=== PATIENT | female | born 1965 | race Caucasian/White ===

== ENCOUNTER 2016-06-11 19:51 | Emergency (ER) | payer MEDICAID ==
[2016-06-11] MEDS ORDERED: NORCO 5/325MG TABLET (BULK) As Ordered ONE (21:19)
--- NOTE | 2016-06-11 21:29 | EDDOCDS ---
Physician Documentation [facility] Name: Shaina Manrique Age: 50 yrs Sex: Female : 1965 Arrival Date: 06/11/2016 Time: 19:51 Bed Triage 1 Private MD: Marty Knott Disposition: 06/11/16 21:20 Discharged to Home/Self Care. Impression: Fracture of coccyx, Contusion of lower back and pelvis. - Condition is Stable. - Discharge Instructions: Back Pain, Adult, Contusion, Tailbone Injury. - Prescriptions for [place] 5- 325 mg Oral Tablet - take 1 tablet by ORAL route every 6 hours As needed MDD: 4 tabs; 12 tablet. - Work Release Form - 2 day, Medication Reconciliation, Local Pharmacy Hours form. - Follow up: Marty Knott; When: Call to arrange an appointment; Reason: Recheck today's complaints, Continuance of care. - Problem is new. - Symptoms are unchanged. Historical: - Allergies: NSAIDS d/t ulcers; - Home Meds: 1. amlodipine 10 mg oral tab 1 tab once daily (Last dose: 06/11/2016 08:00) 2. Cymbalta 30 mg Oral cpDR once daily (Last dose: 06/11/2016 08:00) 3. Zoloft 50 mg Oral tab 1 tab once daily (Last dose: 06/11/2016 08:00) 4. tramadol 50 mg Oral tab 1 tab every 4-6 hours (Last dose: 06/11/2016 15:00) 5. Protonix 40 mg Oral TbEC 1 tab 2 times per day (Last dose: 06/11/2016 08:00) - PMHx: Chronic Back pain; Depression; Gastric Ulcers; Hypertension; - PSHx: Lumbar Laminectomy; Hip Arthroplasty, Left; - Social history: Smoking status: Patient uses tobacco products, current some day smoker. Patient/guardian denies using alcohol, street drugs, No barriers to communication noted, The patient speaks fluent Upper Sorbian, Speaks appropriately for age. - Family history: Not pertinent. - : The pt / caregiver states he / she is not on anticoagulants. Home medication list is obtained from the patient. - Exposure Risk Screening:: None identified. 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 4 in. (162.56 cm) (R); Pain 7/10; 21:20 BP 150 / 98 LA (man/); Resp 18; ms18 19:53 Body Mass Index 30.90 (81.65 kg, 162.56 cm) lr2 21:20 PT states that she forgot to take her BP meds today and states that she will take them ms18 as soon as she gets home MDM: 21:16 HYDROcodone-acetaminophen 4 pack- 5 mg-325 mg 1 packets PO Per package directions; mo1 Dispense with patient. 1 po q4h prn for pain ordered. 21:27 [facility] Payment Agreement was scanned into [employer] and attached to record. jp5 21:27 Financial registration complete. jp5 Administered Medications: 21:25 Drug: HYDROcodone-acetaminophen 4 pack- 1 packets [hydrocodone 5 mg-acetaminophen 325 lf1 mg tablet (1 tabs)] {Co-Signature: ms18 (Anastasia Arreola RN).} Route: PO; 21:26 Follow up: Response: Med's dispensed home lf1 Signatures: Astrid Segundo RN RN lf1 Milagros Birch RN RN darrellb Luis Enrique Magana PA PA mo1 Harriett Daniels jp5 Anastasia rAreola RN ms18 The chart was reviewed and I authenticate all verbal orders and agree with the evaluation and treatment provided.Attachments: 21:27 [facility] Payment Agreement jp5 MTDD
--- NOTE | 2016-06-11 21:29 | EDDOCDS ---
Nurse's Notes [facility] Name: Shaina Manrique Age: 50 yrs Sex: Female : 1965 Arrival Date: 06/11/2016 Time: 19:51 Bed Triage 1 Private MD: Marty Knott Diagnosis: Fracture of coccyx;Contusion of lower back and pelvis Presentation: 06/11 19:57 Presenting complaint: Patient states: fell onto "tail bone" last night. Seen at and ttb was instructed to come to ER for CT scan to rule out sacral fracture. Adult Sepsis Screening: The patient does not have new or worsening altered mentation. Patient's respiratory rate is less than 22. Systolic blood pressure is greater than 100. Patient has a qSOFA score of 0- Negative Sepsis Screen. Suicide/Homicide risk assessment- the patient denies having any suicidal and/or homicidal ideations and does not present with any other emotional, behavioral or mental health complaints. Status: Patient is not a community service coordinator or dependent. Transition of care: patient was not received from another setting of care. 19:57 Acuity: KARL Level 4 ttb 19:57 Method Of Arrival: Walkin/Carried/Asstd ttb Triage Assessment: 19:59 General: Appears in no apparent distress, uncomfortable, well nourished, well groomed, ttb Behavior is appropriate for age, cooperative, pleasant. Pain: Location: "tailbone" Pain currently is 7 out of 10 on a pain scale. HIV screening NA for this visit Offered previously. Neurological: Level of Consciousness is awake, alert. Cardiovascular: Chest pain is denied. Respiratory: No deficits noted. Airway is patent Denies cough, shortness of breath. Derm: Skin is normal. Musculoskeletal: pain to coccyx. Injury Description: pt fell from standing. 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 amlodipine 10 mg oral tab 1 tab once daily (Last dose: 06/11/2016 08:00) 2. Cymbalta 30 mg Oral cpDR once daily (Last dose: 06/11/2016 08:00) 3. Zoloft 50 mg Oral tab 1 tab once daily (Last dose: 06/11/2016 08:00) 4. tramadol 50 mg Oral tab 1 tab every 4-6 hours (Last dose: 06/11/2016 15:00) 5. Protonix 40 mg Oral TbEC 1 tab 2 times per day (Last dose: 06/11/2016 08:00) - PMHx: Chronic Back pain; Depression; Gastric Ulcers; Hypertension; - PSHx: Lumbar Laminectomy; Hip Arthroplasty, Left; - Social history: Smoking status: Patient uses tobacco products, current some day smoker. Patient/guardian denies using alcohol, street drugs, No barriers to communication noted, The patient speaks fluent Turkmen, Speaks appropriately for age. - Family history: Not pertinent. - : The pt / caregiver states he / she is not on anticoagulants. Home medication list is obtained from the patient. - Exposure Risk Screening:: None identified. Screenin:37 Screening information is obtained from the patient. Fall risk: No risks identified. lf1 Assistance ADL's: requires no assistance with activities of daily living. Abuse/DV Screen: The patient / caregiver reports he/she is: not in a situation that causes fear, pain or injury. Nutritional screening: No deficits noted. Advance Directives: Currently, there is no health care proxy. home support is adequate. Assessment: 20:36 Adult Sepsis Screening: The patient does not have new or worsening altered mentation. lf1 Patient's respiratory rate is less than 22. Systolic blood pressure is greater than 100. Patient has a qSOFA score of 0- Negative Sepsis Screen. General: Appears uncomfortable, Behavior is cooperative. Pain: Location: coccyx and gluteal cleft Pain currently is 8 out of 10 on a pain scale. Neurological: Level of Consciousness is awake, alert, Oriented to person, place, time. EENT: No deficits noted. Respiratory: Respiratory effort is even, unlabored. GI: Denies nausea, vomiting. : Denies incontinence. Injury Description: pt fell from standing. 20:37 General: Pt reports she was seen at [facility] and had xrays, was advised to [facility] report to ED for CT scan to rule out fracture. 21:26 General: Appears uncomfortable, Behavior is cooperative. Pain: Location: coccyx Pain lf1 currently is 8 out of 10 on a pain scale. Neurological: Level of Consciousness is awake, alert. Respiratory: Respiratory effort is even, unlabored. GI: Denies nausea, vomiting. Derm: Skin is intact. Vital Signs: 19:53 BP 185 / 105; Pulse 89; Resp 16; Temp 99.0; Pulse Ox 98% ; Weight 81.65 kg (R); Height lr2 5 ft. 4 in. (162.56 cm) (R); Pain 7/10; 21:20 BP 150 / 98 LA (man/); Resp 18; ms18 19:53 Body Mass Index 30.90 (81.65 kg, 162.56 cm) lr2 21:20 PT states that she forgot to take her BP meds today and states that she will take them ms18 as soon as she gets home Vitals: 19:53 Log In Time: June 11, 2016 at 19:51. lr2 ED Course: 19:53 Patient visited by Blanquita Fernandez. lr2 19:53 Patient moved to Waiting lr2 19:55 Marty Knott is Private Physician. lr2 19:55 Patient moved to Pre RCE lr2 19:57 Triage Initiated ttb 20:35 Patient moved to Triage 1 lf1 20:38 Patient visited by Astrid Segundo RN. lf1 20:54 Luis Enrique Magana PA is PHCP. mo1 20:54 Chad Olea DO is Attending Physician. mo1 21:07 Patient visited by Luis Enrique Magana PA. mo1 21:20 Patient visited by Anastasia Arreola RN. ms18 21:20 Marty Knott is Referral Physician. mo1 21:26 The patient / caregiver is instructed regarding the plan of care and ED course. lf1 21:26 No IV's were initiated during this patient's visit. No procedures done that require lf1 assistance. 21:27 [facility] Payment Agreement was scanned into [employer] and attached to record. jp5 Administered Medications: 21:25 Drug: HYDROcodone-acetaminophen 4 pack- 1 packets [hydrocodone 5 mg-acetaminophen 325 lf1 mg tablet (1 tabs)] {Co-Signature: ms18 (Anastasia Arreola RN).} Route: PO; 21:26 Follow up: Response: Med's dispensed home lf1 Order Results: There are currently no results for this order. Outcome: 21:20 Discharge ordered by Provider. mo1 21:26 Discharge Assessment: Patient awake, alert and oriented x 3. No cognitive and/or lf1 functional deficits noted. Patient verbalized understanding of disposition instructions. Patient awake and alert. Oriented to person, place and time. Patient verbalized understanding of disposition instructions. patient administered narcotics - yes. Pt provided with safe discharge. The following High Risk Discharge criteria are identified: None. Discharged to home ambulatory. Condition: improved. Discharge instructions given to patient, Instructed on discharge instructions, follow up and referral plans. medication usage, no driving heavy equipment, Demonstrated understanding of instructions, medications, Pt was receptive of discharge instructions/ teaching. Prescriptions given X 1, Work note provided to patient. No special radiology studies were completed. Property :Personal belongings accompany Pt. 21:28 Patient left the ED. lf1 Signatures: Astrid SegundoRN RN lf1 Milagros Birch RN RN ttb Luis Enrique Magana PA PA mo1 Anastasia ArreolaRN RN ms18 Harriett Daniels jp5 Blanquita Fernandez lr2 Anastasia Arreola RN ms18 Corrections: (The following items were deleted from the chart) 19:56 19:53 Pulse 89bpm; Resp 16bpm; Pulse Ox 98%; Temp 99.0F; 81.65 kg Reported; Height 5 lr2 ft. 4 in. Reported; BMI: 30.9; Pain 7/10; lr2 MTDD
--- NOTE | 2016-06-13 22:30 | EDDOCDS ---
Nurse's Notes [facility] Name: Shaina Manrique Age: 50 yrs Sex: Female : 1965 Arrival Date: 06/11/2016 Time: 19:51 Bed Triage 1 Private MD: Marty Knott Diagnosis: Fracture of coccyx;Contusion of lower back and pelvis Presentation: 06/11 19:57 Presenting complaint: Patient states: fell onto "tail bone" last night. Seen at and ttb was instructed to come to ER for CT scan to rule out sacral fracture. Adult Sepsis Screening: The patient does not have new or worsening altered mentation. Patient's respiratory rate is less than 22. Systolic blood pressure is greater than 100. Patient has a qSOFA score of 0- Negative Sepsis Screen. Suicide/Homicide risk assessment- the patient denies having any suicidal and/or homicidal ideations and does not present with any other emotional, behavioral or mental health complaints. Status: Patient is not a information services vice president or dependent. Transition of care: patient was not received from another setting of care. 19:57 Acuity: KARL Level 4 ttb 19:57 Method Of Arrival: Walkin/Carried/Asstd ttb Triage Assessment: 19:59 General: Appears in no apparent distress, uncomfortable, well nourished, well groomed, ttb Behavior is appropriate for age, cooperative, pleasant. Pain: Location: "tailbone" Pain currently is 7 out of 10 on a pain scale. HIV screening NA for this visit Offered previously. Neurological: Level of Consciousness is awake, alert. Cardiovascular: Chest pain is denied. Respiratory: No deficits noted. Airway is patent Denies cough, shortness of breath. Derm: Skin is normal. Musculoskeletal: pain to coccyx. Injury Description: pt fell from standing. 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 amlodipine 10 mg oral tab 1 tab once daily (Last dose: 06/11/2016 08:00) 2. Cymbalta 30 mg Oral cpDR once daily (Last dose: 06/11/2016 08:00) 3. Zoloft 50 mg Oral tab 1 tab once daily (Last dose: 06/11/2016 08:00) 4. tramadol 50 mg Oral tab 1 tab every 4-6 hours (Last dose: 06/11/2016 15:00) 5. Protonix 40 mg Oral TbEC 1 tab 2 times per day (Last dose: 06/11/2016 08:00) - PMHx: Chronic Back pain; Depression; Gastric Ulcers; Hypertension; - PSHx: Lumbar Laminectomy; Hip Arthroplasty, Left; - Social history: Smoking status: Patient uses tobacco products, current some day smoker. Patient/guardian denies using alcohol, street drugs, No barriers to communication noted, The patient speaks fluent Luxembourgish, Speaks appropriately for age. - Family history: Not pertinent. - : The pt / caregiver states he / she is not on anticoagulants. Home medication list is obtained from the patient. - Exposure Risk Screening:: None identified. Screenin:37 Screening information is obtained from the patient. Fall risk: No risks identified. lf1 Assistance ADL's: requires no assistance with activities of daily living. Abuse/DV Screen: The patient / caregiver reports he/she is: not in a situation that causes fear, pain or injury. Nutritional screening: No deficits noted. Advance Directives: Currently, there is no health care proxy. home support is adequate. Assessment: 20:36 Adult Sepsis Screening: The patient does not have new or worsening altered mentation. lf1 Patient's respiratory rate is less than 22. Systolic blood pressure is greater than 100. Patient has a qSOFA score of 0- Negative Sepsis Screen. General: Appears uncomfortable, Behavior is cooperative. Pain: Location: coccyx and gluteal cleft Pain currently is 8 out of 10 on a pain scale. Neurological: Level of Consciousness is awake, alert, Oriented to person, place, time. EENT: No deficits noted. Respiratory: Respiratory effort is even, unlabored. GI: Denies nausea, vomiting. : Denies incontinence. Injury Description: pt fell from standing. 20:37 General: Pt reports she was seen at [facility] and had xrays, was advised to [facility] report to ED for CT scan to rule out fracture. 21:26 General: Appears uncomfortable, Behavior is cooperative. Pain: Location: coccyx Pain lf1 currently is 8 out of 10 on a pain scale. Neurological: Level of Consciousness is awake, alert. Respiratory: Respiratory effort is even, unlabored. GI: Denies nausea, vomiting. Derm: Skin is intact. Vital Signs: 19:53 BP 185 / 105; Pulse 89; Resp 16; Temp 99.0; Pulse Ox 98% ; Weight 81.65 kg (R); Height lr2 5 ft. 4 in. (162.56 cm) (R); Pain 7/10; 21:20 BP 150 / 98 LA (man/); Resp 18; ms18 19:53 Body Mass Index 30.90 (81.65 kg, 162.56 cm) lr2 21:20 PT states that she forgot to take her BP meds today and states that she will take them ms18 as soon as she gets home Vitals: 19:53 Log In Time: June 11, 2016 at 19:51. lr2 ED Course: 19:53 Patient visited by Blanquita Fernandez. lr2 19:53 Patient moved to Waiting lr2 19:55 Marty Knott is Private Physician. lr2 19:55 Patient moved to Pre RCE lr2 19:57 Triage Initiated ttb 20:35 Patient moved to Triage 1 lf1 20:38 Patient visited by Astrid Segundo RN. lf1 20:54 Luis Enrique Magana PA is PHCP. mo1 20:54 Chad Olea DO is Attending Physician. mo1 21:07 Patient visited by Luis Enrique Magana PA. mo1 21:20 Patient visited by Anastasia Arreola,WING. ms18 21:20 Marty Knott is Referral Physician. mo1 21:26 The patient / caregiver is instructed regarding the plan of care and ED course. lf1 21:26 No IV's were initiated during this patient's visit. No procedures done that require lf1 assistance. 21:27 [facility] Payment Agreement was scanned into [employer] and attached to record. jp5 06/12 09:35 T-Sheet-- Draft Copy was scanned into [employer] and attached to record. gb Administered Medications: 06/11 21:25 Drug: HYDROcodone-acetaminophen 4 pack- 1 packets [hydrocodone 5 mg-acetaminophen 325 lf1 mg tablet (1 tabs)] {Co-Signature: ms18 (Anastasia Arreola RN).} Route: PO; 21:26 Follow up: Response: Med's dispensed home lf1 Order Results: There are currently no results for this order. Outcome: 21:20 Discharge ordered by Provider. mo1 21:26 Discharge Assessment: Patient awake, alert and oriented x 3. No cognitive and/or lf1 functional deficits noted. Patient verbalized understanding of disposition instructions. Patient awake and alert. Oriented to person, place and time. Patient verbalized understanding of disposition instructions. patient administered narcotics - yes. Pt provided with safe discharge. The following High Risk Discharge criteria are identified: None. Discharged to home ambulatory. Condition: improved. Discharge instructions given to patient, Instructed on discharge instructions, follow up and referral plans. medication usage, no driving heavy equipment, Demonstrated understanding of instructions, medications, Pt was receptive of discharge instructions/ teaching. Prescriptions given X 1, Work note provided to patient. No special radiology studies were completed. Property :Personal belongings accompany Pt. 21:28 Patient left the ED. lf1 Signatures: Mendy Contreras, Reg Reg gb Astrid SegundoRN RN lf1 Milagros Birch RN RN ttb Luis Enrique Magana PA PA mo1 Anastasia Arreola RN RN ms18 Harriett Daniels Laura lr2 Anastasia Arreola RN ms18 Corrections: (The following items were deleted from the chart) 19:56 19:53 Pulse 89bpm; Resp 16bpm; Pulse Ox 98%; Temp 99.0F; 81.65 kg Reported; Height 5 lr2 ft. 4 in. Reported; BMI: 30.9; Pain 7/10; lr2 Chart Complete MTDD
--- NOTE | 2016-06-13 22:30 | EDDOCDS ---
Physician Documentation [facility] Name: Shaina Manrique Age: 50 yrs Sex: Female : 1965 Arrival Date: 06/11/2016 Time: 19:51 Bed Triage 1 Private MD: Marty Knott Disposition: 06/11/16 21:20 Discharged to Home/Self Care. Impression: Fracture of coccyx, Contusion of lower back and pelvis. - Condition is Stable. - Discharge Instructions: Back Pain, Adult, Contusion, Tailbone Injury. - Prescriptions for [place] 5- 325 mg Oral Tablet - take 1 tablet by ORAL route every 6 hours As needed MDD: 4 tabs; 12 tablet. - Work Release Form - 2 day, Medication Reconciliation, Local Pharmacy Hours form. - Follow up: Marty Knott; When: Call to arrange an appointment; Reason: Recheck today's complaints, Continuance of care. - Problem is new. - Symptoms are unchanged. Historical: - Allergies: NSAIDS d/t ulcers; - Home Meds: 1. amlodipine 10 mg oral tab 1 tab once daily (Last dose: 06/11/2016 08:00) 2. Cymbalta 30 mg Oral cpDR once daily (Last dose: 06/11/2016 08:00) 3. Zoloft 50 mg Oral tab 1 tab once daily (Last dose: 06/11/2016 08:00) 4. tramadol 50 mg Oral tab 1 tab every 4-6 hours (Last dose: 06/11/2016 15:00) 5. Protonix 40 mg Oral TbEC 1 tab 2 times per day (Last dose: 06/11/2016 08:00) - PMHx: Chronic Back pain; Depression; Gastric Ulcers; Hypertension; - PSHx: Lumbar Laminectomy; Hip Arthroplasty, Left; - Social history: Smoking status: Patient uses tobacco products, current some day smoker. Patient/guardian denies using alcohol, street drugs, No barriers to communication noted, The patient speaks fluent Sami, Speaks appropriately for age. - Family history: Not pertinent. - : The pt / caregiver states he / she is not on anticoagulants. Home medication list is obtained from the patient. - Exposure Risk Screening:: None identified. 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 4 in. (162.56 cm) (R); Pain 7/10; 21:20 BP 150 / 98 LA (man/); Resp 18; ms18 19:53 Body Mass Index 30.90 (81.65 kg, 162.56 cm) lr2 21:20 PT states that she forgot to take her BP meds today and states that she will take them ms18 as soon as she gets home MDM: 21:16 HYDROcodone-acetaminophen 4 pack- 5 mg-325 mg 1 packets PO Per package directions; mo1 Dispense with patient. 1 po q4h prn for pain ordered. [facility] Payment Agreement was scanned into [employer] and attached to record. jp5 : Financial registration complete. jp5 06/12 09:35 T-Sheet-- Draft Copy was scanned into [employer] and attached to record. gb Administered Medications: 06/11 21:25 Drug: HYDROcodone-acetaminophen 4 pack- 1 packets [hydrocodone 5 mg-acetaminophen 325 lf1 mg tablet (1 tabs)] {Co-Signature: [email or web address] (Anastasia Arreola RN).} Route: PO; 21:26 Follow up: Response: Med's dispensed home lf1 Signatures: Mendy Contreras, Reg Reg gb Astrid Segundo RN RN lf1 Milagros Birch RN RN ttb Luis Enrique Magana PA PA mo1 Harriett Daniels jp5 Anastasia Arreola RN ms18 The chart was reviewed and I authenticate all verbal orders and agree with the evaluation and treatment provided.Attachments: [facility] Payment Agreement jp5 06/12 09:35 T-Sheet-- Draft Copy gb Chart Complete MTDD
--- NOTE | 2016-06-13 22:30 | EDDOCDS ---
Physician Documentation [facility] Name: Shaina Manrique Age: 50 yrs Sex: Female : 1965 Arrival Date: 06/11/2016 Time: 19:51 Bed Triage 1 Private MD: Marty Knott Disposition: 06/11/16 21:20 Discharged to Home/Self Care. Impression: Fracture of coccyx, Contusion of lower back and pelvis. - Condition is Stable. - Discharge Instructions: Back Pain, Adult, Contusion, Tailbone Injury. - Prescriptions for Emmet 5- 325 mg Oral Tablet - take 1 tablet by ORAL route every 6 hours As needed MDD: 4 tabs; 12 tablet. - Work Release Form - 2 day, Medication Reconciliation, Local Pharmacy Hours form. - Follow up: Marty Knott; When: Call to arrange an appointment; Reason: Recheck today's complaints, Continuance of care. - Problem is new. - Symptoms are unchanged. Historical: - Allergies: NSAIDS d/t ulcers; - Home Meds: 1. amlodipine 10 mg oral tab 1 tab once daily (Last dose: 06/11/2016 08:00) 2. Cymbalta 30 mg Oral cpDR once daily (Last dose: 06/11/2016 08:00) 3. Zoloft 50 mg Oral tab 1 tab once daily (Last dose: 06/11/2016 08:00) 4. tramadol 50 mg Oral tab 1 tab every 4-6 hours (Last dose: 06/11/2016 15:00) 5. Protonix 40 mg Oral TbEC 1 tab 2 times per day (Last dose: 06/11/2016 08:00) - PMHx: Chronic Back pain; Depression; Gastric Ulcers; Hypertension; - PSHx: Lumbar Laminectomy; Hip Arthroplasty, Left; - Social history: Smoking status: Patient uses tobacco products, current some day smoker. Patient/guardian denies using alcohol, street drugs, No barriers to communication noted, The patient speaks fluent Uzbek, Speaks appropriately for age. - Family history: Not pertinent. - : The pt / caregiver states he / she is not on anticoagulants. Home medication list is obtained from the patient. - Exposure Risk Screening:: None identified. 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 4 in. (162.56 cm) (R); Pain 7/10; 21:20 BP 150 / 98 LA (man/); Resp 18; ms18 19:53 Body Mass Index 30.90 (81.65 kg, 162.56 cm) lr2 21:20 PT states that she forgot to take her BP meds today and states that she will take them ms18 as soon as she gets home MDM: 21:16 HYDROcodone-acetaminophen 4 pack- 5 mg-325 mg 1 packets PO Per package directions; mo1 Dispense with patient. 1 po q4h prn for pain ordered. [facility] Payment Agreement was scanned into [employer] and attached to record. jp5 : Financial registration complete. jp5 06/12 09:35 T-Sheet-- Draft Copy was scanned into [employer] and attached to record. gb Administered Medications: 06/11 21:25 Drug: HYDROcodone-acetaminophen 4 pack- 1 packets [hydrocodone 5 mg-acetaminophen 325 lf1 mg tablet (1 tabs)] {Co-Signature: [id number] (Anastasia Arreola RN).} Route: PO; 21:26 Follow up: Response: Med's dispensed home lf1 Signatures: Mendy Contreras, Reg Reg gb Astrid Segundo RN RN lf1 Milagros Birch RN RN ttb Luis Enrique Magana PA PA mo1 Harriett Daniels jp5 Anastasia Arreola RN ms18 The chart was reviewed and I authenticate all verbal orders and agree with the evaluation and treatment provided.Attachments: [facility] Payment Agreement jp5 06/12 09:35 T-Sheet-- Draft Copy gb Chart Complete MTDD
== END 2016-06-11 21:28 | disposition home or self-care (01) ==
LOC: M ED 19:51
DX: S32.2XXA Fracture of coccyx, initial encounter for closed fracture (principal); W18.2XXA Fall in (into) shower or empty bathtub, initial encounter; Y92.012 Bathroom of single-family (private) house as the place of occurrence of the external cause; Y93.89 Activity, other specified; Y99.8 Other external cause status; I10 Essential (primary) hypertension; G89.29 Other chronic pain; I73.9 Peripheral vascular disease, unspecified; F32.9 Major depressive disorder, single episode, unspecified; K25.9 Gastric ulcer, unspecified as acute or chronic, without hemorrhage or perforation; Z79.899 Other long term (current) drug therapy; Z88.6 Allergy status to analgesic agent; F17.210 Nicotine dependence, cigarettes, uncomplicated

== ENCOUNTER → 2016-06-11 | Outpatient (CLI) | payer MEDICAID ==
--- NOTE | 2016-06-11 17:43 | REP ---
Clinical: Coccyx pain. AP and lateral views of the sacrum and coccyx. Comparison: 05/01/2015. Findings: Possible fracture and subluxation at the level of the distal sacrum is identified with what appears to be a "step off "along the contour of the distal sacrum/coccyx on lateral radiograph. Findings suggest a change from prior examination and fracture of relative indeterminate age. Impression: Cannot exclude fracture and subluxation of the distal sacrum/coccyx. Signed by Lb Ackerman MD 06/11/2016 05:34 P
== END ==
LOC: M LRY 16:57
PROVIDERS: ATTEND Nurse Practitioner Family
DX: M53.3 Sacrococcygeal disorders, not elsewhere classified (principal); R93.7 Abnormal findings on diagnostic imaging of other parts of musculoskeletal system

== ENCOUNTER → 2017-06-07 | Outpatient (CLI) | payer OTHER, MEDICAID | LOC: M LRY 10:33 | DX: S39.92XA Unspecified injury of lower back, initial encounter (principal); Z98.1 Arthrodesis status; M51.36 Other intervertebral disc degeneration, lumbar region | CPT/HCPCS: 72110 ==

== ENCOUNTER 2017-07-07 11:53 | Emergency (ER) | payer OTHER, MEDICAID ==
[2017-07-07] MEDS: NORCO, ANEXSIA 5/325MG TABLET (HYDROcodone/ACETAMINOPHEN) PO (12:10)
== END 2017-07-07 13:12 | disposition home or self-care (01) ==
LOC: M ED 11:53
DX: S32.2XXA Fracture of coccyx, initial encounter for closed fracture (principal); W01.0XXA Fall on same level from slipping, tripping and stumbling without subsequent striking against object, initial encounter; Y92.89 Other specified places as the place of occurrence of the external cause; M54.9 Dorsalgia, unspecified; G89.29 Other chronic pain; F17.200 Nicotine dependence, unspecified, uncomplicated; Z79.899 Other long term (current) drug therapy
CPT/HCPCS: 72220

== ENCOUNTER → 2017-09-11 | Outpatient (REF) | payer OTHER ==
[2017-09-11 19:20] LABS: RHEUMATOID FACTOR QUANT < 10.0 IU/ML (<15.0)
[2017-09-13 14:16] LABS: ANTI DOUBLE STRAND-DNA AB 3 IU/mL (0-9); ANTINUCLEAR ANTIBODIES DIRECT Negative (Negative)
[2017-09-14 03:02] LABS: CYCLIC CITRULLINATED PEPTIDE 5 units (0-19)
== END ==
LOC: M LAB REF 16:44
DX: Z13.9 Encounter for screening, unspecified (principal)
CPT/HCPCS: 86038

== ENCOUNTER → 2018-07-17 | Outpatient (REF) | payer OTHER, MEDICAID ==
[~2018-07-17] MED LIST: AMLO10TA5; DULO1CAP3; GABA800T4; HYDR-3713 PO; METO1TAB7; PANT40TA3; SERT-138; TRAM50TA2
[2018-07-17 13:36] LABS: ALBUMIN 3.9 GM/DL (3.2-5.2); ALT/SGPT 22 U/L (12-78); BILIRUBIN,TOTAL 0.3 MG/DL (0.2-1.0); BLOOD UREA NITROGEN 15 MG/DL (7-18); CALCIUM LEVEL 8.7 MG/DL (8.5-10.1); CARBON DIOXIDE LEVEL 28 MEQ/L (21-32); CHLORIDE LEVEL 111 MEQ/L (98-107); CHOLESTEROL LEVEL 217 MG/DL (<200); CHOLESTEROL RISK RATIO 4.018 (<5); CREATININE FOR GFR 0.88 MG/DL (0.55-1.30); GLOMERULAR FILTRATION RATE > 60.0 (>51); GLUCOSE, FASTING 111 MG/DL (70-100); HDL CHOLESTEROL 54 MG/DL (>40); LDL CHOLESTEROL 147 MG/DL (<100); NON-HDL-C 163 MG/DL; POTASSIUM SERUM 3.4 MEQ/L (3.5-5.1); SODIUM LEVEL 144 MEQ/L (136-145); TOTAL PROTEIN 7.3 GM/DL (6.4-8.2); TRIGLYCERIDES LEVEL 79 MG/DL (<150)
[2018-07-17 13:37] LABS: TOTAL 25(OH) VITAMIN D 17.9 NG/ML (30.0-100.0); VITAMIN B12 LEVEL 356 PG/ML (247-911)
[2018-07-17 14:22] LABS: HEMOGLOBIN A1c 5.7 %
[2018-07-17 15:53] LABS: BASO % 0.4 % (0.0-1.0); EOS # 0.1 10^3/uL (0.0-0.50); EOS % 1.7 % (0.0-3.0); HEMATOCRIT 37.5 % (36.0-47.0); HEMOGLOBIN 11.5 g/dl (12.0-15.5); LYMPH # 1.6 10^3/uL (1.5-4.5); LYMPH % 30.4 % (24.0-44.0); MEAN CORPUSCULAR HEMOGLOBIN 23.7 pg (27.0-33.0); MEAN CORPUSCULAR HGB CONC 30.7 g/dl (32.0-36.5); MEAN CORPUSCULAR VOLUME 77.2 fl (80.0-96.0); MONO # 0.4 10^3/uL (0.0-0.8); MONO % 6.5 % (0.0-5.0); NEUTROPHILS # 3.3 10^3/uL (1.8-7.7); NEUTROPHILS % 60.6 % (36.0-66.0); PLATELET COUNT, AUTOMATED 325 10^3/uL (150-450); RED BLOOD COUNT 4.86 10^6/uL (4.00-5.40); WHITE BLOOD COUNT 5.4 10^3/uL (4.0-10.0)
== END ==
LOC: M LAB REF 12:41
PROVIDERS: ATTEND Nurse Practitioner Family
DX: Z13.9 Encounter for screening, unspecified (principal); I10 Essential (primary) hypertension

== ENCOUNTER 2019-12-31 14:09 | Emergency (ER) | payer MEDICAID, OTHER ==
[~2019-12-31] VITALS: Ht 162.6 cm; Wt 88.6 kg
[~2019-12-31 14:09] MED LIST changes: -AMLO10TA5; +AMLO1TAB25; -DULO1CAP3; +DULO1CAP6; +PANT40TA29; -PANT40TA3
[2019-12-31] MEDS ORDERED: ACET-683 PO (14:21)
--- NOTE | 2019-12-31 15:29 | REPVR ---
PROCEDURE INFORMATION: Exam: XR Right Shoulder Exam date and time: 12/31/2019 3:13 PM Age: 54 years old Clinical indication: Injury or trauma; Fall; Initial encounter; Blunt trauma (contusions or hematomas); Shoulder; Right; Additional info: Fall, poor rom TECHNIQUE: Imaging protocol: XR Right shoulder. Views: 2 or more views. COMPARISON: No relevant prior studies available. FINDINGS: Bones/joints: Normal. Soft tissues: Normal. IMPRESSION: No acute findings. Electronically signed by: Jeffrey Real On 12/31/2019 15:29:21 PM
--- NOTE | 2019-12-31 15:30 | REPVR ---
PROCEDURE INFORMATION: Exam: XR Right Humerus Exam date and time: 12/31/2019 3:13 PM Age: 54 years old Clinical indication: Injury or trauma; Fall; Initial encounter; Blunt trauma (contusions or hematomas); Arm, upper; Right; Additional info: Fall, poor rom TECHNIQUE: Imaging protocol: XR Right humerus Views: 2 or more views. COMPARISON: CR Elbow, complete 11/16/2013 11:53 AM FINDINGS: Bones/joints: A 5 mm bone island is seen in the capitellum. There is no evidence of fracture. Soft tissues: Normal. IMPRESSION: There is no evidence of fracture. Electronically signed by: Jeffrey Real On 12/31/2019 15:30:02 PM
[2019-12-31 16:13] VITALS: BP 170/94
== END 2019-12-31 16:19 | disposition home or self-care (01) ==
LOC: M ED 14:09
DX: M25.511 Pain in right shoulder (principal); W01.0XXA Fall on same level from slipping, tripping and stumbling without subsequent striking against object, initial encounter; Y92.019 Unspecified place in single-family (private) house as the place of occurrence of the external cause; I10 Essential (primary) hypertension; K25.9 Gastric ulcer, unspecified as acute or chronic, without hemorrhage or perforation; F17.200 Nicotine dependence, unspecified, uncomplicated; Z79.899 Other long term (current) drug therapy

== ENCOUNTER → 2020-01-23 | Outpatient (CLI) | payer OTHER ==
[~2020-01-23] MED LIST changes: +ACET-683 PO
--- NOTE | 2020-01-28 08:42 | REP ---
MRI RIGHT SHOULDER HISTORY: Fall one month ago with pain. TECHNIQUE: MRI right shoulder performed with multiple sequences obtained. The study is extremely limited due to excessive patient motion on all sequences. The study is limited despite repeating virtually every sequence. FINDINGS: There is a complete full-thickness tear of the supraspinatus tendon with retraction of the musculotendinous junction, approximately 4 cm. I suspect at least a partial tear of the infraspinatus tendon as well. There is a partial tear of the subscapularis. There are mild hypertrophic degenerative changes of the acromioclavicular joint. There is a type 2 acromion. The biceps tendon appears somewhat thickened and there is mild surrounding fluid, suggesting tendinitis or strain. There is no Hill-Sachs deformity. No abnormal signal is seen in the deltoid muscle. No gross labral tear is seen, but evaluation of the labrum is extremely limited due to the excessive patient motion. There is no definite abnormal bone marrow signal with no occult fracture. There is a moderate joint effusion with fluid extending throughout the subacromial subdeltoid bursa. IMPRESSION: Extremely limited exam due to excessive patient motion. There is a full- thickness complete tear of the supraspinatus tendon with retraction of the musculotendinous junction approximately 4 cm. There is at least a partial tear of the infraspinatus tendon and subscapularis tendon. Mild hypertrophic degenerative changes of the acromioclavicular joint with a type 2 acromion. Thickening and increased signal of the biceps tendon in the bicipital groove with mild surrounding fluid, suggesting tendinitis or strain. Labrum is not well evaluated, but there is no gross labral tear seen. Moderate joint effusion, with fluid throughout the subacromial subdeltoid bursae. MTDD
== END ==
LOC: M RAD 06:54
PROVIDERS: ATTEND Orthopaedic Surgery Sports Medicine
DX: M75.101 Unspecified rotator cuff tear or rupture of right shoulder, not specified as traumatic (principal)

== ENCOUNTER → 2020-02-16 | Outpatient (CLI) | payer OTHER | LOC: M LABSMTC 12:50 | PROVIDERS: ATTEND Anesthesiology | DX: Z01.812 Encounter for preprocedural laboratory examination (principal); Z20.828 Contact with and (suspected) exposure to other viral communicable diseases | CPT/HCPCS: C9803; U0003 ==

== ENCOUNTER 2020-02-20 07:25 | Day surgery (SDC) | payer OTHER ==
[~2020-02-20] VITALS: Ht 162.6 cm; Wt 98.8 kg
[~2020-02-20 07:25] MED LIST changes: +LR 1,000 ML IV ONE; +MIDAZOLAM INJ 2MG/2ML VIAL (J2250 PER 1MG) As Ordered ONE; +ceFAZolin SOD 2 GM in IV 1 EA IV ONE; +fentaNYL 100 MCG/2 ML INJECTION (J3010) As Ordered ONE
[2020-02-20] MEDS ORDERED: dexameTHASONE 10MG/1ML VIAL PRES.FREE (J1100 PER 1MG) ONE (07:26)
[2020-02-20] MEDS ORDERED: LIDOCAINE 1% MDV 20ML VIAL ONE (07:26)
[2020-02-20] MEDS ORDERED: ROPIvacaine 0.5% 30ML INJECTION (J2795 PER 1MG) ONE (07:26)
[2020-02-20] MEDS ORDERED: propofoL 200 MG/20 ML VIAL As Ordered ONE (08:34)
[2020-02-20] MEDS ORDERED: ROCURONIUM BROMIDE 50 MG/5 ML VIAL As Ordered ONE (08:34)
[2020-02-20] MEDS ORDERED: LIDOCAINE 2% 100MG/5ML SDV (FOR ANES.) As Ordered ONE (08:34)
[2020-02-20] MEDS ORDERED: fentaNYL 250 MCG/5 ML INJECTION (J3010) As Ordered ONE (08:35)
[2020-02-20] MEDS ORDERED: MIDAZOLAM INJ 2MG/2ML VIAL (J2250 PER 1MG) As Ordered ONE ×2 (08:35→09:44)
[2020-02-20] MEDS: fentaNYL 100 MCG/2 ML INJECTION (J3010) IV PRN ×6 (09:31→13:55)
[2020-02-20] MEDS: MIDAZOLAM INJ 2MG/2ML VIAL (J2250 PER 1MG) IV PRN ×4 (09:31→09:50)
[2020-02-20] MEDS ORDERED: EPINEPHrine 1MG/ML INJ 30ML MD-VIAL As Ordered ONE (09:48)
[2020-02-20] MEDS ORDERED: LABETALOL 100MG/20ML VIAL As Ordered ONE (10:42)
[2020-02-20] MEDS ORDERED: SUGAMMADEX SODIUM 500 MG/5 ML VIAL (BRIDION) As Ordered ONE (11:58)
[2020-02-20] MEDS ORDERED: dexameTHASONE 4 MG/ML 1ML VIAL (J1100 PER 1MG) As Ordered ONE (11:58)
[2020-02-20] MEDS ORDERED: ONDANSETRON 4MG/2ML VIAL As Ordered ONE (11:58)
[2020-02-20] MEDS ORDERED: KETOROLAC 60MG 2ML VIAL As Ordered ONE (11:58)
[2020-02-20] MEDS ORDERED: fentaNYL 100 MCG/2 ML INJECTION (J3010) As Ordered ONE ×3 (12:03→13:33)
[2020-02-20] MEDS ORDERED: ACETAMINOPHEN TAB 650MG DOSE (2X325MG) PO PRN (13:15)
[2020-02-20] MEDS ORDERED: PERCOCET 5MG/325MG TAB PO PRN (13:15)
[2020-02-20] MEDS ORDERED: LR 1,000 ML IV SCH ×2 (13:15)
[2020-02-20] MEDS ORDERED: oxyCODONE 5MG TAB PO PRN (13:15)
[2020-02-20] MEDS ORDERED: MORPHINE 2 MG/ML 1ML VIAL (J2270) IV PRN (13:15)
[2020-02-20] MEDS ORDERED: ONDANSETRON 4MG/2ML VIAL IV PRN ×2 (13:15)
[2020-02-20 15:30] VITALS: BP 144/88
--- NOTE | 2020-02-23 07:11 | RO ---
DATE OF OPERATION: 02/20/2020 PREOPERATIVE DIAGNOSIS: Right shoulder rotator cuff tear. POSTOPERATIVE DIAGNOSIS: Right shoulder rotator cuff tear. PROPOSED PROCEDURE: Right shoulder arthroscopic rotator cuff repair. PROCEDURE PERFORMED: Right shoulder arthroscopic rotator cuff repair, subscapularis repair, supraspinatus repair, subacromial decompression, biceps tenotomy. SURGEON: Dr. David Starkey RECORDS MANAGER: TYPE OF ANESTHETIC: General anesthetic plus block. OPERATIVE PREAMBLE: This 54-year-old female had a fall and sustained an acute large full-thickness rotator cuff tear. We talked about the pros, cons, risks, benefits of going ahead with surgery and marked the right upper extremity. She had no further questions and proceeded to surgery. OPERATIVE REPORT: Patient was brought to the operating theater, where they administered general anesthetic. They administered preoperative block. They administered 600 mg of intravenous (IV) clindamycin prior to the start of the case due to penicillin allergy. The limb was prepped and draped in the usual sterile fashion, allowing over 3 minutes for prep solution drying time prior to draping. Patient was placed in the right lateral decubitus position with the use of a longitudinal traction set up at 50 pounds of traction. Preoperative time- out was performed, confirming the site, the patient, and surgery. All bony prominences were padded, including axillary roll was used, sequential compression device on the down leg. We began by inserting the arthroscope into the shoulder first in posterior approach. I made an anterior portal through the rotator interval. I used standard two lateral portals. Cannulas were used anteriorly as well as two 8.25 mm cannulas laterally. The rotator interval was debrided. The cartilage on the glenoid and humeral side are normal. There was an obvious full-thickness supraspinatus tendon tear, including the subscapularis with an obvious comma sign. Biceps appeared unstable medially as well as having extreme flaying and longitudinal tearing, so I performed a tenotomy with the ablator. There was anterior to posterior tearing of the supraspinatus tendon as well. This was gently debrided to fresh margins. Subacromial decompression was performed as well as using the bur to create a bleeding bed of healing at the greater tuberosity. I performed mobilization of the tendon both superiorly as well as inferiorly at the tendon, avoiding going more medially than about 1 cm at the glenoid. I placed one stay stitch in the superolateral aspect of the anterior region into the supraspinatus as well as one locking loop stitch at the upper border of the subscapularis. I then placed these into an anterior leading edge 4.25 mm Arthrex SwiveLock biocomposite suture anchor to re-create the normal tension on the subscapularis. I took arthroscopic pictures throughout the case and saved these on the system. Next, we turned our attention to performing a standard Arthrex SpeedBridge technique. I placed my two medial anchors at the articular cartilage margin. I achieved large inferior to superior bites of the supraspinatus tendon. I then cut the splice and the suture and then demetris- crossed the sutures. I achieved good tension on the sutures and good footprint compression; however, the sutures did mildly cut through the superior aspect of the greater tuberosity; however, the construct achieved near perfect compression and nearly fully lateralized on the footprint. Arthroscopic pictures were taken and saved in the system. Infraspinatus appeared normally attached. Arthroscope was withdrawn. Wound was thoroughly irrigated. Portal sites were closed with interrupted 2-0 Vicryl sutures. We did use 8.25 mm cannulas. The skin was cleansed with wet to dry dressing followed by Steri-Strips, Adaptic 4 x54 gauze, ABD dressing, cloth tape. Patient was woken up from general anesthetic, transferred off the operating table, and taken to the postanesthesia care unit in stable condition. The patient's upper extremity was placed in a sling. There was some strike-through on the dressing afterwards. We changed the sling as well as reinforced the dressing. PLAN: Patient is to only do pendulum exercises in the sling for 6 weeks given the large size of the tear. I would like to see her in the office in two weeks' time. He may be discharged home according to day surgery criteria. Prescription will be called to pharmacy choice electronically. All sponge count, needle counts, and instruments counts were correct. No complications. Estimated blood loss 100 mL. MTDD
== END 2020-02-20 15:35 | disposition home or self-care (01) ==
LOC: M SDC 07:25
PROVIDERS: ATTEND Orthopaedic Surgery Sports Medicine
DX: S46.011A Strain of muscle(s) and tendon(s) of the rotator cuff of right shoulder, initial encounter (principal); S46.111A Strain of muscle, fascia and tendon of long head of biceps, right arm, initial encounter; I10 Essential (primary) hypertension; F17.210 Nicotine dependence, cigarettes, uncomplicated; F32.9 Major depressive disorder, single episode, unspecified; F41.9 Anxiety disorder, unspecified; W19.XXXA Unspecified fall, initial encounter; Y92.9 Unspecified place or not applicable; Y93.9 Activity, unspecified; Y99.9 Unspecified external cause status; Z79.899 Other long term (current) drug therapy; Z86.2 Personal history of diseases of the blood and blood-forming organs and certain disorders involving the immune mechanism; Z96.642 Presence of left artificial hip joint
CPT/HCPCS: 29826; 29827; 29828; 64415; C1713; J0690; J1100; J1885; J2250; J2405; J2795; J3010

== ENCOUNTER → 2020-03-19 | Outpatient (REF) | payer OTHER ==
[~2020-03-19] MED LIST changes: -LR 1,000 ML IV ONE; -MIDAZOLAM INJ 2MG/2ML VIAL (J2250 PER 1MG) As Ordered ONE; -ceFAZolin SOD 2 GM in IV 1 EA IV ONE; -fentaNYL 100 MCG/2 ML INJECTION (J3010) As Ordered ONE
[2020-03-19 12:58] LABS: BASO % 0.5 % (0.0-1.0); EOS # 0.2 10^3/uL (0.0-0.5); EOS % 2.7 % (0.0-3.0); HEMATOCRIT 36.2 % (36.0-47.0); LYMPH # 2.3 10^3/uL (1.5-5.0); LYMPH % 34.9 % (24.0-44.0); MEAN CORPUSCULAR HEMOGLOBIN 24.6 pg (27.0-33.0); MEAN CORPUSCULAR HGB CONC 30.4 g/dl (32.0-36.5); MONO # 0.5 10^3/uL (0.0-0.8); MONO % 8.1 % (0.0-5.0); NEUTROPHILS # 3.5 10^3/uL (1.5-8.5); NEUTROPHILS % 53.5 % (36.0-66.0); PLATELET COUNT, AUTOMATED 325 10^3/uL (150-450); RED BLOOD COUNT 4.47 10^6/uL (4.00-5.40); WHITE BLOOD COUNT 6.6 10^3/uL (4.0-10.0)
[2020-03-19 13:34] LABS: ALBUMIN 3.3 GM/DL (3.2-5.2); ALT/SGPT 23 U/L (12-78); BILIRUBIN,TOTAL 0.1 MG/DL (0.2-1.0); BLOOD UREA NITROGEN 25 MG/DL (7-18); CALCIUM LEVEL 8.4 MG/DL (8.5-10.1); CARBON DIOXIDE LEVEL 27 MEQ/L (21-32); CHLORIDE LEVEL 109 MEQ/L (98-107); CHOLESTEROL LEVEL 201 MG/DL (<200); CHOLESTEROL RISK RATIO 4.568 (<5); CREATININE FOR GFR 0.78 MG/DL (0.55-1.30); FREE T4 0.97 NG/DL (0.76-1.46); GLOMERULAR FILTRATION RATE > 60.0 (>51); GLUCOSE, FASTING 129 MG/DL (70-100); HDL CHOLESTEROL 44 MG/DL (>40); LDL CHOLESTEROL 112 MG/DL (<100); NON-HDL-C 157 MG/DL; POTASSIUM SERUM 4.1 MEQ/L (3.5-5.1); SODIUM LEVEL 139 MEQ/L (136-145); TOTAL 25(OH) VITAMIN D 18.8 NG/ML (30.0-100.0); TOTAL PROTEIN 6.6 GM/DL (6.4-8.2); TRIGLYCERIDES LEVEL 225 MG/DL (<150)
== END ==
LOC: M LAB REF 12:09
PROVIDERS: ATTEND Nurse Practitioner Family
DX: E66.9 Obesity, unspecified (principal); K21.9 Gastro-esophageal reflux disease without esophagitis; I10 Essential (primary) hypertension; M54.5 Low back pain; F41.9 Anxiety disorder, unspecified

== ENCOUNTER 2021-01-21 00:18 | Observation (INO) | payer OTHER ==
[~2021-01-21] VITALS: Ht 162.6 cm; Wt 107.2 kg
[2021-01-21] MEDS ORDERED: CLON0.5T2 PO ×2 (00:41→07:41)
[2021-01-21] MEDS ORDERED: METO1TAB33 (00:41)
[2021-01-21] MEDS ORDERED: NS 1,000 ML IV ONE (00:50)
[2021-01-21 01:43] LABS: BASO % 0.4 % (0.0-1.0); EOS # 0.3 10^3/uL (0.0-0.5); EOS % 2.8 % (0.0-3.0); HEMATOCRIT 38.6 % (36.0-47.0); HEMOGLOBIN 11.8 g/dl (12.0-15.5); LYMPH # 1.4 10^3/uL (1.5-5.0); LYMPH % 12.5 % (24.0-44.0); MEAN CORPUSCULAR HEMOGLOBIN 24.4 pg (27.0-33.0); MEAN CORPUSCULAR HGB CONC 30.6 g/dl (32.0-36.5); MEAN CORPUSCULAR VOLUME 79.8 fl (80.0-96.0); MONO # 0.9 10^3/uL (0.0-0.8); MONO % 7.5 % (2.0-8.0); NEUTROPHILS # 8.7 10^3/uL (1.5-8.5); NEUTROPHILS % 76.2 % (36.0-66.0); PLATELET COUNT, AUTOMATED 368 10^3/uL (150-450); RED BLOOD COUNT 4.84 10^6/uL (4.00-5.40); WHITE BLOOD COUNT 11.4 10^3/uL (4.0-10.0)
[2021-01-21 02:16] LABS: ACETAMINOPHEN LEVEL < 2.0 UG/ML (10.0-30.0); ALBUMIN 3.5 GM/DL (3.2-5.2); ALT/SGPT 28 U/L (12-78); BILIRUBIN,DIRECT < 0.1 MG/DL (0.0-0.2); BILIRUBIN,TOTAL 0.2 MG/DL (0.2-1.0); BLOOD UREA NITROGEN 17 MG/DL (7-18); CALCIUM LEVEL 8.6 MG/DL (8.5-10.1); CARBON DIOXIDE LEVEL 23 MEQ/L (21-32); CHLORIDE LEVEL 112 MEQ/L (98-107); CPK CREATINE PHOSPHOKINASE 135 U/L (26-192); CREATININE FOR GFR 0.61 MG/DL (0.55-1.30); ETHYL ALCOHOL (ETHANOL) < 0.003 % (0.000-0.010); GLOMERULAR FILTRATION RATE > 60.0 (>51); GLUCOSE, FASTING 108 MG/DL (70-100); POTASSIUM SERUM 4.1 MEQ/L (3.5-5.1); SALICYLATE LEVEL 2.8 MG/DL (5.0-30.0); SODIUM LEVEL 141 MEQ/L (136-145); TOTAL PROTEIN 7.2 GM/DL (6.4-8.2)
--- NOTE | 2021-01-21 05:48 | ECGEPIP ---
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
[2021-01-21 06:12] LABS: AMPHETAMINES LEVEL URINE NEGATIVE (NEGATIVE); BARBITURATES URINE NEGATIVE (NEGATIVE); BENZODIAZEPINES URINE NEGATIVE (NEGATIVE); CANNABINOIDS URINE POSITIVE (NEGATIVE); COCAINE METABOLITE URINE NEGATIVE (NEGATIVE); METHADONE URINE NEGATIVE (NEGATIVE); OPIATES URINE NEGATIVE (NEGATIVE); PHENCYCLIDINE URINE NEGATIVE (NEGATIVE)
[2021-01-21] MEDS ORDERED: TRAZ-257 PO (07:41)
[2021-01-21] MEDS ORDERED: DULO1CAP6 PO (07:41)
[2021-01-21] MEDS ORDERED: ZOLO100T PO (07:41)
[2021-01-21] MEDS ORDERED: TRAM50TA2 PO (07:41)
[2021-01-21] MEDS ORDERED: PANT40TA29 PO (07:41)
[2021-01-21] MEDS ORDERED: METO1TAB33 PO (07:41)
[2021-01-21] MEDS ORDERED: LOSA25TA14 PO (07:41)
[2021-01-21] MEDS ORDERED: GABA800T4 PO (07:41)
[2021-01-21] MEDS ORDERED: AMLO1TAB25 PO (07:41)
[2021-01-21] MEDS ORDERED: PROAAER10 INH (07:41)
[2021-01-21] MEDS ORDERED: MED REC COMMENT (07:42)
[2021-01-21] MEDS ORDERED: HOME MED LIST COMPLETE! XX SCH (07:45)
--- NOTE | 2021-01-21 08:03 | REP ---
INDICATION: AMS COMPARISON: 09/23/2014 TECHNIQUE: Portable AP view of the chest FINDINGS: The mediastinum and cardiac silhouette are stable and within normal limits for portable technique. The lung juárez are clear without acute consolidation, effusion, or pneumothorax. Skeletal structures are intact. IMPRESSION: No acute cardiopulmonary process appreciated. <Electronically signed by Lb Ackerman > 01/21/21 075
[2021-01-21 08:19] LABS: RSV AMPLIFICATION NEGATIVE (NEGATIVE)
--- NOTE | 2021-01-21 08:47 | REPVR ---
PROCEDURE INFORMATION: Exam: CT Head Without Contrast Exam date and time: 01/21/2021 7:11 AM Age: 55 years old Clinical indication: Altered mental status/memory loss; Additional info: AMS TECHNIQUE: Imaging protocol: Computed tomography of the head without contrast. Radiation optimization: All CT scans at this facility use at least one of these dose optimization techniques: automated exposure control; mA and/or kV adjustment per patient size (includes targeted exams where dose is matched to clinical indication); or iterative reconstruction. COMPARISON: MRI-Spine,Cervical without con 09/08/2015 9:39 AM FINDINGS: Brain: No acute hemorrhage or acute territorial infarct. Mild diffuse involutional changes. Cerebral ventricles: No ventriculomegaly. Paranasal sinuses: Visualized sinuses are unremarkable. No fluid levels. Mastoid air cells: Visualized mastoid air cells are well aerated. Bones/joints: Unremarkable. No acute fracture. Soft tissues: Unremarkable. IMPRESSION: No acute intracranial abnormality. Electronically signed by: Rory Tinoco On 01/21/2021 08:47:19 AM
[2021-01-21] MEDS ORDERED: traMADol 50 MG TAB PO PRN (09:35)
[2021-01-21] MEDS ORDERED: ALBUTEROL 90 MCG/ACT 8GM HFA INHALER INH PRN (09:35)
--- NOTE | 2021-01-21 09:57 | HPEPDOC ---
General Date of Admission 01/21/21 Date of Service: Jan 21, 2021 Chief Complaint The patient is a 55-year-old female admitted with a reason for visit of Substance Abuse. Source: Patient History of Present Illness Patient is 55 years old female with past medical history of depression, chronic back pain, hypertension, stomach ulcer, history of iron deficiency anemia presenting to the hospital with altered mental status. According to her son on January 18 patient was prescribed clonazepam for anxiety, patient had 15 pills left in her bottle. Today in the morning he was found found only 1 pill in the bottle. Presumably patient took 14 pills of clonazepam. On arrival to ED patient was not oriented in time and place. When I saw patient she was awake, alert and oriented in time and place. She adamantly reported that she did not want to kill herself and she never had any suicidal ideations. She does not remember what happened and why she had only 1 clonazepam pill left in the bottle. In ER patient was found to have white blood count of 11.4, EKG negative for acute ischemic changes. Home Medications Scheduled Amlodipine Besylate (Amlodipine Besylate) 10 Mg Tablet, 10 MG PO DAILY, (Reported) Duloxetine Hcl (Duloxetine HCl) 60 Mg Capsule.dr, 60 MG PO DAILY, (Reported) Gabapentin (Gabapentin) 800 Mg Tablet, 800 MG PO TID, (Reported) Losartan Potassium (Losartan Potassium) 25 Mg Tablet, 25 MG PO DAILY, (Reported) Metoprolol Succinate (Metoprolol Succinate) 100 Mg Tab.er.24h, 100 MG PO DAILY, (Reported) Pantoprazole Sodium (Pantoprazole Sodium) 40 Mg Tablet.dr, 40 MG PO BID, (Reported) Sertraline Hcl (Zoloft) 100 Mg Tablet, 100 MG PO DAILY, (Reported) Trazodone HCl (Trazodone HCl) 100 Mg Tablet, 100 MG PO QHS, (Reported) Scheduled PRN Albuterol Sulfate (Proair Hfa) 8.5 Gm Hfa.aer.ad, 2 PUFF INH Q6H PRN for SHORTNESS OF BREATH, (Reported) Clonazepam (Clonazepam) 0.5 Mg Tablet, 0.5 MG PO DAILY PRN for ANXIETY, (Reported) Tramadol HCl (Tramadol HCl) 50 Mg Tablet, 50 MG PO BID PRN for PAIN LEVEL 1-5, (Reported) Miscellaneous Medications [Med Rec Comment] , (Reported) MED LIST OBTAINED FROM EXTERNAL MED HISTORY, UNABLE TO VERIFY WITH PATIENT Allergies Coded Allergies: No Known Allergies (Unverified , 02/20/05) Past Medical History Medical History DEPRESSION8 YRS-ABILIFY 5 MTHS LAST YR- GAIN WT, STOPPED COUPLE DAYS AGO,ZOLOFT HERNIATED DISC AT [facility]- MRI 01/24 CHRONIC BACK PAIN-LUMBOSACRAL SPONDYLITIS- S/P SURGERY HX OF BILATERAL CARPAL TUNNEL WITH RT SIDED S/P RELEASE HTN FOR 10 YRS ON ATENOLOL STOMACH ULCER- EGD -PROTONIX HX OF IRON DEF ANEMIA Surgical History CARPAL TUNNEL 3-CSECTION LOWER BACK SURGERY AT [facility] Family History FATHER: ALIVE, DM MOTHER: ALIVE, NO KNOWN MEDICAL PROBLEMS Social History * Smoker: Denies Alcohol: Denies Drugs: denies A-FIB/CHADSVASC A-FIB History Current/History of A-Fib/PAF?: No Current PO Anticoag Therapy: No Review of Systems Constitutional: Denies: Chills, Fever Eyes: Denies: Pain ENT: Denies: Head Aches Skin: Denies: Rash Pulmonary: Denies: Dyspnea Cardiovascular: Denies: Chest Pain Gastrointestinal: Denies: Nausea, Vomiting Genitourinary: Denies: Dysuria Hematologic: Denies: Bruising Endocrine: Denies: Polydipsia Neurological: Denies: Weakness Psych: Reports: Mood Normal Physical Examination General Exam: Positive: Alert, Cooperative Eye Exam: Positive: PERRLA ENT Exam: Positive: Atraumatic Neck Exam: Positive: Supple; Negative: JVD Chest Exam: Positive: Clear to auscultation Heart Exam: Positive: Rate Normal Abdomen Exam: Positive: Normal bowel sounds Extremity Exam: Negative: Clubbing Neuro Exam: Positive: Normal Gait Psych Exam: Positive: Oriented x 3 Vital Signs Vital Signs Date Time Temp Pulse Resp B/P (MAP) Pulse Ox O2 Delivery O2 Flow Rate FiO2 01/21/21 09:00 68 96 Room Air 01/21/21 08:55 98.8 148/67 (94) 01/21/21 06:15 18 Laboratory Data Labs 24H Laboratory Tests 2 01/21/21 01:14: Immature Granulocyte % (Auto) 0.6, Neutrophils (%) (Auto) 76.2H, Lymphocytes (%) (Auto) 12.5L, Monocytes (%) (Auto) 7.5, Eosinophils (%) (Auto) 2.8, Basophils (%) (Auto) 0.4, Neutrophils # (Auto) 8.7H, Lymphocytes # (Auto) 1.4L, Monocytes # (Auto) 0.9H, Eosinophils # (Auto) 0.3, Basophils # (Auto) 0.0, Nucleated Red Blood Cells % (auto) 0.0, Anion Gap 6L, Glomerular Filtration Rate > 60.0, Calcium Level 8.6, Total Bilirubin 0.2, Direct Bilirubin < 0.1, Aspartate Amino Transf (AST/SGOT) 16, Alanine Aminotransferase (ALT/SGPT) 28, Alkaline Phosphatase 97, Total Creatine Kinase 135, Total Protein 7.2, Albumin 3.5, Albumin/Globulin Ratio 0.9L, Thyroid Stimulating Hormone (TSH) 1.310, Salicylates Level 2.8L, Acetaminophen Level < 2.0L, Ethyl Alcohol Level < 0.003 01/21/21 01:35: Bedside Glucose (Misc Panel) 113H 01/21/21 05:37: Urine Opiates Screen NEGATIVE, Urine Methadone Screen NEGATIVE, Urine Barbiturates Screen NEGATIVE, Urine Phencyclidine Screen NEGATIVE, Urine Amphetamines Screen NEGATIVE, Urine Benzodiazepines Screen NEGATIVE, Urine Cocaine Metabolite Screen NEGATIVE, Urine Cannabinoids Screen POSITIVEH 01/21/21 07:25: Coronavirus (COVID-19)(PCR) NEGATIVE, Influenza Type A (RT-PCR) NEGATIVE, Influenza Type B (RT-PCR) NEGATIVE, Respiratory Syncytial Virus (PCR) NEGATIVE CBC/BMP Laboratory Tests 01/21/21 01:14 Assessment/Plan Patient is 55 years old female with past medical history of depression, chronic back pain, hypertension, stomach ulcer, history of iron deficiency anemia presenting to the hospital with altered mental status. According to her son on January 18 patient was prescribed clonazepam for anxiety, patient had 15 pills left in her bottle. Today in the morning he was found found only 1 pill in the bottle. Presumably patient took 14 pills of clonazepam. On arrival to ED patient was not oriented in time and place. When I saw patient she was awake, alert and oriented in time and place. She adamantly reported that she did not want to kill herself and she never had any suicidal ideations. She does not remember what happened and why she had only 1 clonazepam pill left in the bottle. In ER patient was found to have white blood count of 11.4, EKG negative for acute ischemic changes. Problems (1) Metabolic encephalopathy Status: Acute Problem Text: 2/2 meds side effect resolved (2) Benzodiazepine overdose of undetermined intent Status: Acute Problem Text: appreciate/ agree with psych consult Gabapentin, sertraline, trazodone on hold (3) HTN (hypertension) Status: Chronic Problem Text: continue home meds Plan / VTE VTE Prophylaxis Ordered?: Yes CHRISTIANE MARINO DO Jan 21, 2021 09:57
[2021-01-21] MEDS: METOPROLOL SUCC (TopROL XL) 100MG *XL* TAB PO SCH (10:44)
[2021-01-21] MEDS: LOSARTAN 25 MG TAB PO SCH (10:45)
[2021-01-21] MEDS: PANTOPRAZOLE 40MG TAB (PROTONIX) PO SCH ×2 (10:45→21:45)
[2021-01-21] MEDS: DULoxetine 30MG CAPSULE (CYMBALTA) PO SCH (10:45)
[2021-01-21 14:19] VITALS: BP 138/70
[2021-01-21] MEDS: ACETAMINOPHEN TAB 650MG DOSE (2X325MG) PO PRN (19:07)
[2021-01-21] MEDS: HEPARIN SOD (PORCINE) 5000UNITS/ML 1ML VIAL/SYRINGE SC SCH (21:45)
[2021-01-21 22:00] VITALS: BP 137/86
[2021-01-22 06:00] VITALS: BP 138/85
[2021-01-22] MEDS: ACETAMINOPHEN TAB 650MG DOSE (2X325MG) PO PRN (06:13)
[2021-01-22 07:07] LABS: HEMATOCRIT 35.5 % (36.0-47.0); HEMOGLOBIN 11.2 g/dl (12.0-15.5); MEAN CORPUSCULAR HEMOGLOBIN 24.6 pg (27.0-33.0); MEAN CORPUSCULAR HGB CONC 31.5 g/dl (32.0-36.5); MEAN CORPUSCULAR VOLUME 77.9 fl (80.0-96.0); PLATELET COUNT, AUTOMATED 321 10^3/uL (150-450); RED BLOOD COUNT 4.56 10^6/uL (4.00-5.40); WHITE BLOOD COUNT 6.6 10^3/uL (4.0-10.0)
[2021-01-22] MEDS ORDERED: FLUBLOK(EGG FREE)(QUAD)INFLUENZA VACC 0.5ML SYRINGE 18YRS & OLDER IM ONE (09:00)
[2021-01-22] MEDS: PANTOPRAZOLE 40MG TAB (PROTONIX) PO SCH (09:11)
[2021-01-22] MEDS: DULoxetine 30MG CAPSULE (CYMBALTA) PO SCH (09:11)
[2021-01-22] MEDS: LOSARTAN 25 MG TAB PO SCH (09:13)
[2021-01-22 09:14] VITALS: BP 157/89
[2021-01-22] MEDS: METOPROLOL SUCC (TopROL XL) 100MG *XL* TAB PO SCH (09:14)
[2021-01-22] MEDS: HEPARIN SOD (PORCINE) 5000UNITS/ML 1ML VIAL/SYRINGE SC SCH (09:15)
[2021-01-22 10:10] LABS: ALBUMIN 3.2 GM/DL (3.2-5.2); ALT/SGPT 33 U/L (12-78); BILIRUBIN,TOTAL 0.4 MG/DL (0.2-1.0); BLOOD UREA NITROGEN 11 MG/DL (7-18); CALCIUM LEVEL 8.7 MG/DL (8.5-10.1); CARBON DIOXIDE LEVEL 27 MEQ/L (21-32); CHLORIDE LEVEL 112 MEQ/L (98-107); CREATININE FOR GFR 0.57 MG/DL (0.55-1.30); GLOMERULAR FILTRATION RATE > 60.0 (>51); GLUCOSE, FASTING 107 MG/DL (70-100); MAGNESIUM LEVEL 2.1 MG/DL (1.8-2.4); POTASSIUM SERUM 3.6 MEQ/L (3.5-5.1); SODIUM LEVEL 144 MEQ/L (136-145); TOTAL PROTEIN 6.6 GM/DL (6.4-8.2)
--- NOTE | 2021-01-22 12:48 | MHCRPDOC ---
[facility] Consultation Consultation DATE OF CONSULTATION: 01/22/21 CONSULTATION REQUESTED BY: DR Luigi Barragan REASON FOR CONSULTATION: Overdose of Klonopin RELEVANT HISTORY: Patient was brought to the hospital with overdose of Klonopin treated on the medical unit, consult was called for evaluation of possibility of intentional overdose. As per her son, patient recently got filled her Klonopin 15 of them, he is only one left. He was thinking possibility of intentional overdose. Patient was evaluated today, she is calm cooperative made good eye contact reported to me that she never attempted suicide in her life and this could be accidental. She even does not know what happened prior to the overdose. She never been hospitalized in psychiatric unit, no history of suicide attempts however she was treated for depression and anxiety, currently she is on Cymbalta , Zoloft and Klonopin. She reports the medications are helping her. She has an upcoming appointment with the psychiatrist. She does not express any symptoms of depression nor suicidal thoughts PAST PSYCHIATRIC HISTORY: History of depression and anxiety SUBSTANCE ABUSE HISTORY: Denies MENTAL STATUS EXAMINATION: She is awake alert oriented to time place and person, speech coherent and goal- directed thought process is linear, mood is euthymic affect is appropriate for the mood, thought content denied any suicidal thoughts, no history of delusions, denies any auditory visual hallucinations, memory immediate remote recent are good, attention and concentration are good. DIAGNOSIS: 1. History of depression and anxiety Accidental overdose of Klonopin PLAN: Since patient has a outpatient appointment with a psychiatrist, she is currently taking antidepressants, she could be discharged to her son who is very supportive of her. Vital Signs Vital Signs Date Time Temp Pulse Resp B/P (MAP) Pulse Ox O2 Delivery O2 Flow Rate FiO2 01/22/21 10:36 17 01/22/21 09:14 79 187/89 01/22/21 06:00 98.5 92 Room Air Laboratory Data 24H Labs Laboratory Tests 2 01/21/21 21:38: Bedside Glucose (Misc Panel) 126H 01/22/21 06:23: Nucleated Red Blood Cells % (auto) 0.0, Anion Gap 5L, Glomerular Filtration Rate > 60.0, Calcium Level 8.7, Magnesium Level 2.1, Total Bilirubin 0.4#, Aspartate Amino Transf (AST/SGOT) 23, Alanine Aminotransferase (ALT/SGPT) 33, Alkaline Phosphatase 84, Total Protein 6.6, Albumin 3.2, Albumin/Globulin Ratio 0.9L Home Medications Current Medications Current Medications Medications (Trade) Dose Ordered Sig/Rd Route PRN Reason Start Time Stop Time Status Last Admin Dose Admin Acetaminophen (Tylenol Tab) 650 mg Q4H PRN PO MILD PAIN or TEMP > 101 01/21/21 09:35 01/22/21 06:13 Albuterol Sulfate (Proventil, Ventolin Hfa) 2 puff Q6H PRN INH SHORTNESS OF BREATH 01/21/21 09:35 Amlodipine Besylate (Norvasc) 10 mg DAILY PO 01/21/21 09:00 01/22/21 09:14 Duloxetine HCl (Cymbalta) 60 mg DAILY PO 01/21/21 09:00 01/22/21 09:11 Heparin Sodium (Porcine) (Heparin) 5,000 units Q12H SC 01/21/21 21:00 01/22/21 09:15 Home Med (Home Med List Complete!) ASDIRECTED XX 01/21/21 07:45 01/21/21 07:45 DC Losartan Potassium (Cozaar) 25 mg DAILY PO 01/21/21 09:00 01/22/21 09:13 Metoprolol Succinate (TopROL XL) 100 mg DAILY PO 01/21/21 09:00 01/22/21 09:14 Pantoprazole Sodium (Protonix) 40 mg BID PO 01/21/21 09:00 01/22/21 09:11 Tramadol HCl (Ultram) 50 mg BID PRN PO MODERATE PAIN (PS 5-7) 01/21/21 09:35 01/22/21 09:19 Scheduled Amlodipine Besylate (Amlodipine Besylate) 10 Mg Tablet, 10 MG PO DAILY, (Reported) Duloxetine Hcl (Duloxetine HCl) 60 Mg Capsule.dr, 60 MG PO DAILY, (Reported) Gabapentin (Gabapentin) 800 Mg Tablet, 800 MG PO TID, (Reported) Losartan Potassium (Losartan Potassium) 25 Mg Tablet, 25 MG PO DAILY, (Reported) Metoprolol Succinate (Metoprolol Succinate) 100 Mg Tab.er.24h, 100 MG PO DAILY, (Reported) Pantoprazole Sodium (Pantoprazole Sodium) 40 Mg Tablet.dr, 40 MG PO BID, (Reported) Sertraline Hcl (Zoloft) 100 Mg Tablet, 100 MG PO DAILY, (Reported) Scheduled PRN Albuterol Sulfate (Proair Hfa) 8.5 Gm Hfa.aer.ad, 2 PUFF INH Q6H PRN for SHORTNESS OF BREATH, (Reported) Tramadol HCl (Tramadol HCl) 50 Mg Tablet, 50 MG PO BID PRN for PAIN LEVEL 1-5, (Reported) Miscellaneous Medications [Med Rec Comment] , (Reported) MED LIST OBTAINED FROM EXTERNAL MED HISTORY, UNABLE TO VERIFY WITH PATIENT Allergies Coded Allergies: No Known Allergies (Unverified , 02/20/05) RAJNI GRIJALVA MD Jan 22, 2021 12:48
--- NOTE | 2021-01-22 15:18 | DS.PDOC ---
Discharge Summary General Date of Admission Jan 21, 2021 at 09:33 Date of Discharge 01/22/21 Discharge Summary PROCEDURES PERFORMED DURING STAY: [None]. ADMITTING DIAGNOSES: Metabolic encephalopathy Benzodiazepine overdose of undetermined intent HTN (hypertension) DISCHARGE DIAGNOSES: Metabolic encephalopathy Benzodiazepine overdose unintended HTN (hypertension) COMPLICATIONS/CHIEF COMPLAINT: Benzodiazepine Overdose Of Undetermined Intent. HISTORY OF PRESENT ILLNESS:Patient is 55 years old female with past medical history of depression, chronic back pain, hypertension, stomach ulcer, history of iron deficiency anemia presenting to the hospital with altered mental status. According to her son on January 18 patient was prescribed clonazepam for anxiety, patient had 15 pills left in her bottle. Today in the morning he was found found only 1 pill in the bottle. Presumably patient took 14 pills of clonazepam. On arrival to ED patient was not oriented in time and place. When I saw patient she was awake, alert and oriented in time and place. She adamantly reported that she did not want to kill herself and she never had any suicidal ideations. She does not remember what happened and why she had only 1 clonazepam pill left in the bottle. In ER patient was found to have white blood count of 11.4, EKG negative for acute ischemic changes. HOSPITAL COURSE: Patient was admitted for observation. Patient was cleared by psych team. Patient will be discharged home with close follow-up with psychiatrist DISCHARGE MEDICATIONS: Please see below. ALLERGIES: Please see below. PHYSICAL EXAMINATION ON DISCHARGE: VITAL SIGNS: Please see below. Physical Examination General Exam: Positive: Alert, Cooperative Eye Exam: Positive: PERRLA ENT Exam: Positive: Atraumatic Neck Exam: Positive: Supple; Negative: JVD Chest Exam: Positive: Clear to auscultation Heart Exam: Positive: Rate Normal Abdomen Exam: Positive: Normal bowel sounds Extremity Exam: Negative: Clubbing Neuro Exam: Positive: Normal Gait Psych Exam: Positive: Oriented x 3 LABORATORY DATA: Please see below. IMAGING: See above PROGNOSIS: Fair ACTIVITY: [As tolerated]. DIET: Cardiac DISPOSITION: 01 Home, Self-Care. DISCHARGE INSTRUCTIONS: Follow-up with psychiatrist and PCP DISCHARGE CONDITION: [Stable]. TIME SPENT ON DISCHARGE: 40minutes. Vital Signs/I&Os Vital Signs Date Time Temp Pulse Resp B/P (MAP) Pulse Ox O2 Delivery O2 Flow Rate FiO2 01/22/21 10:36 17 01/22/21 09:14 79 187/89 01/22/21 06:00 98.5 92 Room Air I&O- Last 24 Hours up to 6 AM 01/22/21 06:00 Intake Total 0 ml Output Total 300 ml Balance -300 ml Laboratory Data Labs 24H Laboratory Tests 2 01/21/21 21:38: Bedside Glucose (Misc Panel) 126H 01/22/21 06:23: Nucleated Red Blood Cells % (auto) 0.0, Anion Gap 5L, Glomerular Filtration Rate > 60.0, Calcium Level 8.7, Magnesium Level 2.1, Total Bilirubin 0.4#, Aspartate Amino Transf (AST/SGOT) 23, Alanine Aminotransferase (ALT/SGPT) 33, Alkaline Phosphatase 84, Total Protein 6.6, Albumin 3.2, Albumin/Globulin Ratio 0.9L CBC/BMP Laboratory Tests 01/22/21 06:23 FSBS Laboratory Tests Test 01/21/21 21:38 Range/Units Bedside Glucose (Misc Panel) 126 70-105 MG/DL Discharge Medications Scheduled Amlodipine Besylate (Amlodipine Besylate) 10 Mg Tablet, 10 MG PO DAILY, (Reported) Duloxetine Hcl (Duloxetine HCl) 60 Mg Capsule.dr, 60 MG PO DAILY, (Reported) Gabapentin (Gabapentin) 800 Mg Tablet, 800 MG PO TID, (Reported) Losartan Potassium (Losartan Potassium) 25 Mg Tablet, 25 MG PO DAILY, (Reported) Metoprolol Succinate (Metoprolol Succinate) 100 Mg Tab.er.24h, 100 MG PO DAILY, (Reported) Pantoprazole Sodium (Pantoprazole Sodium) 40 Mg Tablet.dr, 40 MG PO BID, (Reported) Sertraline Hcl (Zoloft) 100 Mg Tablet, 100 MG PO DAILY, (Reported) Scheduled PRN Albuterol Sulfate (Proair Hfa) 8.5 Gm Hfa.aer.ad, 2 PUFF INH Q6H PRN for SHORTNESS OF BREATH, (Reported) Tramadol HCl (Tramadol HCl) 50 Mg Tablet, 50 MG PO BID PRN for PAIN LEVEL 1-5, (Reported) Miscellaneous Medications [Med Rec Comment] , (Reported) MED LIST OBTAINED FROM EXTERNAL MED HISTORY, UNABLE TO VERIFY WITH PATIENT Allergies Coded Allergies: No Known Allergies (Unverified , 02/20/05) CHRISTIANE MARINO DO Jan 22, 2021 15:17
== END 2021-01-22 13:19 | disposition home or self-care (01) ==
LOC: M ED 00:18 → M ED INP 09:33 → ENRESERV 13:50 → M MSPAV 14:59
PROVIDERS: ADMIT Internal Medicine; ATTEND Internal Medicine
DX: G92.8 Other toxic encephalopathy (principal); T42.4X4A Poisoning by benzodiazepines, undetermined, initial encounter; Y92.89 Other specified places as the place of occurrence of the external cause; I10 Essential (primary) hypertension; F32.9 Major depressive disorder, single episode, unspecified; F41.9 Anxiety disorder, unspecified; M54.9 Dorsalgia, unspecified; G89.29 Other chronic pain; K25.9 Gastric ulcer, unspecified as acute or chronic, without hemorrhage or perforation; D50.9 Iron deficiency anemia, unspecified; M50.20 Other cervical disc displacement, unspecified cervical region; G56.02 Carpal tunnel syndrome, left upper limb; Z79.899 Other long term (current) drug therapy; Z23 Encounter for immunization
CPT/HCPCS: 36415; 70450; 71045; 80048; 80053; 80076; 80143; 80307; 82077; 82550; 83735; 84443; 85025; 85027; 87631; 90471; 90682; 93005; 93041; 94760; 96372; 99285; J1644

== ENCOUNTER 2021-08-06 22:59 | Emergency (ER) | payer OTHER ==
[~2021-08-06] VITALS: Ht 162.6 cm; Wt 100.0 kg
[~2021-08-06 22:59] MED LIST changes: +AMLO1TAB25 PO; +CLON0.5T2 PO; +DULO1CAP6 PO; +GABA800T4 PO; +LOSA25TA13 PO; +MED REC COMMENT; +METO1TAB33; +METO1TAB33 PO; +PANT40TA29 PO; +PROAAER10 INH; +TRAM50TA2 PO; +TRAZ-257 PO; +ZOLO100T PO
[2021-08-07] MEDS ORDERED: KETOROLAC 60MG 2ML VIAL IM ONE (01:20)
[2021-08-07] MEDS ORDERED: predniSONE 20 MG TAB PO ONE (01:20)
[2021-08-07 01:25] VITALS: BP 160/98
[2021-08-07] MEDS ORDERED: PRED20TA PO (01:38)
[2021-08-07] MEDS ORDERED: NORCO 5/325MG TABLET (BULK FOR ED) PO ONE (01:40)
== END 2021-08-07 01:53 | disposition home or self-care (01) ==
LOC: M ED 22:59
DX: M65.4 Radial styloid tenosynovitis [de Quervain] (principal); M25.531 Pain in right wrist; I10 Essential (primary) hypertension; M54.9 Dorsalgia, unspecified; F17.200 Nicotine dependence, unspecified, uncomplicated; Z79.899 Other long term (current) drug therapy
CPT/HCPCS: 73110; 96372; 99284; J1885; J7512

== ENCOUNTER → 2021-09-25 | Outpatient (CLI) | payer OTHER ==
[~2021-09-25] MED LIST changes: +PRED20TA PO
== END ==
LOC: M LABSMTC 09:32
PROVIDERS: ATTEND Anesthesiology
DX: Z01.818 Encounter for other preprocedural examination (principal); Z11.52 Encounter for screening for COVID-19

== ENCOUNTER 2021-09-28 07:23 | Day surgery (SDC) | payer OTHER ==
[~2021-09-28] VITALS: Ht 162.6 cm; Wt 111.6 kg
[~2021-09-28 07:23] MED LIST changes: +ATOR1TAB21 PO; +CLON0.5T17 PO; +FERR325T3 PO; +LIDOCAINE W/EPINEPHRINE 1% 20ML VIAL As Ordered ONE; +SODIUM BICARBONATE 8.4% INJ 50MEQ 50 ML VIAL As Ordered ONE
[2021-09-28] MEDS ORDERED: LIDOCAINE W/EPINEPHRINE 1% 20ML VIAL XX ONE (07:30)
[2021-09-28] MEDS ORDERED: SODIUM BICARBONATE 8.4% INJ 50MEQ 50 ML VIAL XX ONE (07:30)
[2021-09-28 08:50] VITALS: BP 135/73
[2021-09-28] MEDS ORDERED: TRAM50TA2 PO (15:42)
== END 2021-09-28 09:08 | disposition home or self-care (01) ==
LOC: M SDC 07:23
PROVIDERS: ATTEND Orthopaedic Surgery Hand Surgery
DX: M65.4 Radial styloid tenosynovitis [de Quervain] (principal); Z88.8 Allergy status to other drugs, medicaments and biological substances

== ENCOUNTER → 2021-12-14 | Outpatient (RCR) | payer OTHER ==
[~2021-12-14] MED LIST changes: -LIDOCAINE W/EPINEPHRINE 1% 20ML VIAL As Ordered ONE; -SODIUM BICARBONATE 8.4% INJ 50MEQ 50 ML VIAL As Ordered ONE
== END ==
LOC: M PT 10:39
PROVIDERS: ATTEND Nurse Practitioner Family
DX: M96.1 Postlaminectomy syndrome, not elsewhere classified (principal)

== ENCOUNTER 2021-12-29 07:01 | Outpatient (RCR) | payer OTHER | END 2022-01-13 | LOC: M PT 07:01 | PROVIDERS: ATTEND Nurse Practitioner Family | DX: M96.1 Postlaminectomy syndrome, not elsewhere classified (principal) ==

== ENCOUNTER 2022-02-09 10:40 | Outpatient (RCR) | payer OTHER | END 2022-02-13 23:59 | disposition home or self-care (01) | LOC: M PT 10:40 | PROVIDERS: ATTEND Nurse Practitioner Family | DX: M96.1 Postlaminectomy syndrome, not elsewhere classified (principal) ==

== ENCOUNTER → 2022-02-09 | Outpatient (REF) | payer OTHER ==
[2022-02-09 15:10] LABS: BASO % 0.4 % (0.0-1.0); EOS # 0.2 10^3/uL (0.0-0.5); EOS % 2.2 % (0.0-3.0); HEMATOCRIT 37.9 % (36.0-47.0); HEMOGLOBIN 10.9 g/dl (12.0-15.5); LYMPH # 2.3 10^3/uL (1.5-5.0); LYMPH % 31.4 % (24.0-44.0); MEAN CORPUSCULAR HEMOGLOBIN 23.1 pg (27.0-33.0); MEAN CORPUSCULAR HGB CONC 28.8 g/dl (32.0-36.5); MEAN CORPUSCULAR VOLUME 80.3 fl (80.0-96.0); MONO # 0.7 10^3/uL (0.0-0.8); MONO % 9.6 % (2.0-8.0); NEUTROPHILS # 4.1 10^3/uL (1.5-8.5); PLATELET COUNT, AUTOMATED 325 10^3/uL (150-450); RED BLOOD COUNT 4.72 10^6/uL (4.00-5.40); WHITE BLOOD COUNT 7.3 10^3/uL (4.0-10.0)
[2022-02-09 15:37] LABS: ALBUMIN 3.2 GM/DL (3.2-5.2); ALT/SGPT 21 U/L (12-78); BILIRUBIN,TOTAL 0.1 MG/DL (0.2-1.0); BLOOD UREA NITROGEN 20 MG/DL (7-18); CALCIUM LEVEL 8.6 MG/DL (8.5-10.1); CARBON DIOXIDE LEVEL 28 MEQ/L (21-32); CHLORIDE LEVEL 109 MEQ/L (98-107); CHOLESTEROL LEVEL 122 MG/DL (<200); CHOLESTEROL RISK RATIO 2.837 (<5); CREATININE FOR GFR 0.88 MG/DL (0.55-1.30); GLOMERULAR FILTRATION RATE > 60.0 (>51); GLUCOSE, FASTING 101 MG/DL (70-100); HDL CHOLESTEROL 43 MG/DL (>40); LDL CHOLESTEROL 50 MG/DL (<100); NON-HDL-C 79 MG/DL; POTASSIUM SERUM 4.2 MEQ/L (3.5-5.1); SODIUM LEVEL 141 MEQ/L (136-145); TOTAL PROTEIN 6.5 GM/DL (6.4-8.2); TRIGLYCERIDES LEVEL 145 MG/DL (<150)
[2022-02-09 17:01] LABS: HEMOGLOBIN A1c 5.9 %
== END ==
LOC: M LAB REF 12:22
PROVIDERS: ATTEND Nurse Practitioner Family
DX: E78.5 Hyperlipidemia, unspecified (principal); Z13.228 Encounter for screening for other metabolic disorders

== ENCOUNTER 2022-02-14 13:45 | Outpatient (RCR) | payer OTHER | END 2022-03-15 | LOC: M PT 13:45 | PROVIDERS: ATTEND Nurse Practitioner Family | DX: M96.1 Postlaminectomy syndrome, not elsewhere classified (principal); Z53.9 Procedure and treatment not carried out, unspecified reason ==

== ENCOUNTER 2022-03-28 21:55 | Emergency (ER) | payer OTHER ==
[2022-03-29] MEDS ORDERED: NS 1,000 ML IV ONE (05:00)
[2022-03-29 05:39] LABS: BASO # 0.1 10^3/uL (0.0-0.2); BASO % 0.4 % (0.0-1.0); EOS # 0.1 10^3/uL (0.0-0.5); EOS % 0.8 % (0.0-3.0); HEMATOCRIT 39.4 % (36.0-47.0); HEMOGLOBIN 12.1 g/dl (12.0-15.5); LYMPH # 4.2 10^3/uL (1.5-5.0); LYMPH % 24.6 % (24.0-44.0); MEAN CORPUSCULAR HEMOGLOBIN 23.5 pg (27.0-33.0); MEAN CORPUSCULAR HGB CONC 30.7 g/dl (32.0-36.5); MEAN CORPUSCULAR VOLUME 76.5 fl (80.0-96.0); MONO # 1.3 10^3/uL (0.0-0.8); MONO % 7.4 % (2.0-8.0); NEUTROPHILS # 11.4 10^3/uL (1.5-8.5); NEUTROPHILS % 66.3 % (36.0-66.0); PLATELET COUNT, AUTOMATED 477 10^3/uL (150-450); RED BLOOD COUNT 5.15 10^6/uL (4.00-5.40); WHITE BLOOD COUNT 17.1 10^3/uL (4.0-10.0)
[2022-03-29 05:52] LABS: ETHYL ALCOHOL (ETHANOL) 0.004 % (0.000-0.010)
[2022-03-29 05:53] LABS: RSV AMPLIFICATION NEGATIVE (NEGATIVE)
[2022-03-29 05:54] LABS: ACETAMINOPHEN LEVEL < 2.0 UG/ML (10.0-20.0); ALBUMIN 4.3 G/DL (3.2-5.2); ALKALINE PHOSPHATASE 106 U/L (46-116); ALT/SGPT 20 U/L (7.0-40); AST/SGOT 26 U/L (<34); BILIRUBIN,DIRECT < 0.1 MG/DL (<0.4); BILIRUBIN,TOTAL 0.2 MG/DL (0.3-1.2); BLOOD UREA NITROGEN 24 MG/DL (9-23); CALCIUM LEVEL 9.5 MG/DL (8.5-10.1); CARBON DIOXIDE LEVEL 22 MMOL/L (20-31); CHLORIDE LEVEL 111 MMOL/L (98-107); CK-MB VALUE MASS 2.1 NG/ML (<3.6); GLOMERULAR FILTRATION RATE > 60.0 (>51); GLUCOSE, FASTING 117 MG/DL (60-100); POTASSIUM SERUM 4.7 MMOL/L (3.5-5.1); SALICYLATE LEVEL < 3.0 MG/DL (<30); SODIUM LEVEL 142 MMOL/L (136-145); TOTAL PROTEIN 7.9 G/DL (5.7-8.2)
[2022-03-29 05:56] LABS: THYROID STIMULATING HORMONE 4.336 uIU/ML (0.55-4.78)
[2022-03-29 05:57] LABS: CPK CREATINE PHOSPHOKINASE 99 U/L (34-145); MB/CK RELATIVE INDEX 2.12 (< OR =4)
[2022-03-29 06:02] LABS: OSMOLALITY SERUM 301 MOSM/KG (275-295)
[2022-03-29] MEDS ORDERED: LORazepam 2 MG/ML VIAL IV STA (06:15)
[2022-03-29 06:39] LABS: AMPHETAMINES LEVEL URINE NEGATIVE (NEGATIVE); BARBITURATES URINE NEGATIVE (NEGATIVE); BENZODIAZEPINES URINE NEGATIVE (NEGATIVE); COCAINE METABOLITE URINE NEGATIVE (NEGATIVE); METHADONE URINE NEGATIVE (NEGATIVE); OPIATES URINE NEGATIVE (NEGATIVE); PHENCYCLIDINE URINE NEGATIVE (NEGATIVE)
[2022-03-29 06:41] LABS: CANNABINOIDS URINE POSITIVE (NEGATIVE)
[2022-03-29] MEDS ORDERED: NS 1,000 ML IV SCH (08:00)
[2022-03-29 08:17] LABS: CK-MB VALUE MASS 1.6 NG/ML (<3.6)
[2022-03-29 09:16] VITALS: BP 129/79
== END 2022-03-29 09:40 | disposition home or self-care (01) ==
LOC: M ED 21:55
DX: G47.00 Insomnia, unspecified (principal); R42 Dizziness and giddiness; I10 Essential (primary) hypertension; G89.29 Other chronic pain; M54.9 Dorsalgia, unspecified; Z88.6 Allergy status to analgesic agent; Z86.59 Personal history of other mental and behavioral disorders; Z79.51 Long term (current) use of inhaled steroids; Z79.899 Other long term (current) drug therapy
CPT/HCPCS: 70450; 80048; 80076; 80143; 80307; 81002; 82077; 82140; 82550; 82553; 83605; 83930; 84443; 85025; 87631; 93005; 93041; 94760; 96361; 96374; 99285; J2060

== ENCOUNTER → 2022-08-21 | Outpatient (CLI) | payer OTHER | LOC: M WHC 14:10 | PROVIDERS: ATTEND Nurse Practitioner Family | DX: M81.0 Age-related osteoporosis without current pathological fracture (principal) ==

== ENCOUNTER 2022-09-22 17:41 | Emergency (ER) | payer OTHER ==
[2022-09-22 18:24] LABS: BASO % 0.3 % (0.0-1.0); EOS % 0.1 % (0.0-3.0); HEMATOCRIT 34.7 % (36.0-47.0); HEMOGLOBIN 10.7 g/dl (12.0-15.5); LYMPH # 1.8 10^3/uL (1.5-5.0); LYMPH % 14.8 % (24.0-44.0); MEAN CORPUSCULAR HEMOGLOBIN 22.2 pg (27.0-33.0); MEAN CORPUSCULAR HGB CONC 30.8 g/dl (32.0-36.5); MONO # 0.6 10^3/uL (0.0-0.8); MONO % 4.7 % (2.0-8.0); NEUTROPHILS # 9.6 10^3/uL (1.5-8.5); NEUTROPHILS % 79.8 % (36.0-66.0); PLATELET COUNT, AUTOMATED 416 10^3/uL (150-450); RED BLOOD COUNT 4.82 10^6/uL (4.00-5.40)
[2022-09-22 18:25] LABS: ABG BASE EXCESS 0.7 (-2.0-2.0); ABG HCO3 24.4 MMOL/L (22.0-26.0); ABG O2 SATURATION 94.6 % (95.0-99.0); ABG PARTIAL PRESSURE CO2 35.8 mmHg (35.0-45.0); ABG PARTIAL PRESSURE O2 70.9 mmHg (75.0-100.0); ABG TOTAL CO2 25.5 MMOL/L (22.0-29.0); ABG pH (ARTERIAL) 7.451 UNITS (7.350-7.450)
[2022-09-22 18:49] LABS: ETHYL ALCOHOL (ETHANOL) < 0.003 % (0.000-0.010)
[2022-09-22 18:51] LABS: ACETAMINOPHEN LEVEL < 2.0 UG/ML (10.0-20.0); ALBUMIN 4.1 G/DL (3.2-5.2); ALKALINE PHOSPHATASE 88 U/L (46-116); ALT/SGPT 23 U/L (7.0-40); AST/SGOT 16 U/L (<34); BILIRUBIN,DIRECT 0.2 MG/DL (<0.4); BILIRUBIN,TOTAL 0.5 MG/DL (0.3-1.2); BLOOD UREA NITROGEN 23 MG/DL (9-23); CALCIUM LEVEL 9.3 MG/DL (8.5-10.1); CARBON DIOXIDE LEVEL 22 MMOL/L (20-31); CHLORIDE LEVEL 110 MMOL/L (98-107); CREATININE FOR GFR 0.73 MG/DL (0.55-1.30); GLOMERULAR FILTRATION RATE > 60.0 (>51); GLUCOSE, FASTING 116 MG/DL (60-100); POTASSIUM SERUM 3.7 MMOL/L (3.5-5.1); SALICYLATE LEVEL < 3.0 MG/DL (<30); SODIUM LEVEL 142 MMOL/L (136-145); TOTAL PROTEIN 7.2 G/DL (5.7-8.2)
[2022-09-22 18:54] LABS: THYROID STIMULATING HORMONE 1.765 uIU/ML (0.55-4.78)
[2022-09-22] MEDS ORDERED: LORazepam 2 MG/ML 1ML VIAL IV STA (18:55)
[2022-09-22 21:18] LABS: AMPHETAMINES LEVEL URINE NEGATIVE (NEGATIVE); BARBITURATES URINE NEGATIVE (NEGATIVE); BENZODIAZEPINES URINE NEGATIVE (NEGATIVE); PHENCYCLIDINE URINE NEGATIVE (NEGATIVE)
[2022-09-22 21:19] LABS: COCAINE METABOLITE URINE NEGATIVE (NEGATIVE); METHADONE URINE NEGATIVE (NEGATIVE); OPIATES URINE NEGATIVE (NEGATIVE)
[2022-09-22 21:20] LABS: CANNABINOIDS URINE POSITIVE (NEGATIVE)
[2022-09-22 22:26] VITALS: BP 141/89; TEMP 98.4; O2SAT 100
== END 2022-09-22 22:31 | disposition home or self-care (01) ==
LOC: M ED 17:41
DX: F19.921 Other psychoactive substance use, unspecified with intoxication with delirium (principal); I10 Essential (primary) hypertension; F41.9 Anxiety disorder, unspecified; G89.4 Chronic pain syndrome; K21.9 Gastro-esophageal reflux disease without esophagitis; F17.200 Nicotine dependence, unspecified, uncomplicated; F12.90 Cannabis use, unspecified, uncomplicated; Z88.6 Allergy status to analgesic agent; Z79.899 Other long term (current) drug therapy; Z79.51 Long term (current) use of inhaled steroids
CPT/HCPCS: 36600; 51701; 70450; 71045; 80048; 80076; 80143; 80307; 81002; 82077; 82140; 82803; 83605; 84443; 85025; 87040; 87635; 93005; 93041; 94760; 96374; 99285; J2060

== ENCOUNTER → 2022-10-24 | Outpatient (REF) | payer OTHER ==
[2022-10-24 13:31] LABS: BASO # 0.1 10^3/uL (0.0-0.2); BASO % 0.5 % (0.0-1.0); EOS # 0.1 10^3/uL (0.0-0.5); EOS % 1.1 % (0.0-3.0); HEMATOCRIT 35.5 % (36.0-47.0); HEMOGLOBIN 10.9 g/dl (12.0-15.5); LYMPH % 18.2 % (24.0-44.0); MEAN CORPUSCULAR HEMOGLOBIN 22.5 pg (27.0-33.0); MEAN CORPUSCULAR HGB CONC 30.7 g/dl (32.0-36.5); MEAN CORPUSCULAR VOLUME 73.2 fl (80.0-96.0); MONO # 0.9 10^3/uL (0.0-0.8); MONO % 7.7 % (2.0-8.0); NEUTROPHILS # 7.9 10^3/uL (1.5-8.5); NEUTROPHILS % 72.1 % (36.0-66.0); PLATELET COUNT, AUTOMATED 356 10^3/uL (150-450); RED BLOOD COUNT 4.85 10^6/uL (4.00-5.40)
[2022-10-24 14:07] LABS: ALBUMIN 3.6 G/DL (3.2-5.2); ALKALINE PHOSPHATASE 89 U/L (46-116); ALT/SGPT 17 U/L (7.0-40); AST/SGOT 17 U/L (<34); BILIRUBIN,TOTAL 0.3 MG/DL (0.3-1.2); BLOOD UREA NITROGEN 19 MG/DL (9-23); CALCIUM LEVEL 9.7 MG/DL (8.5-10.1); CARBON DIOXIDE LEVEL 24 MMOL/L (20-31); CHLORIDE LEVEL 107 MMOL/L (98-107); CHOLESTEROL LEVEL 124 MG/DL (<200); CHOLESTEROL RISK RATIO 2.58 (<5); GLOMERULAR FILTRATION RATE > 60.0 (>51); GLUCOSE, FASTING 103 MG/DL (60-100); LDL CHOLESTEROL 60.4 MG/DL (<100); POTASSIUM SERUM 3.4 MMOL/L (3.5-5.1); SODIUM LEVEL 139 MMOL/L (136-145); TOTAL PROTEIN 6.9 G/DL (5.7-8.2); TRIGLYCERIDES LEVEL 78 MG/DL (<150)
[2022-10-24 14:14] LABS: HEMOGLOBIN A1c 5.9 % (4.0-6.0)
== END ==
LOC: M LAB REF 12:28
PROVIDERS: ATTEND Nurse Practitioner Family
DX: Z13.228 Encounter for screening for other metabolic disorders (principal)

== ENCOUNTER 2022-12-11 04:45 | Inpatient (IN) | payer OTHER ==
[~2022-12-11] VITALS: Ht 165.1 cm; Wt 105.1 kg
[2022-12-11] MEDS ORDERED: NS 1,000 ML IV ONE ×2 (04:55→08:35)
[2022-12-11] MEDS ORDERED: LORazepam 2 MG/ML 1ML VIAL IV STA ×3 (05:30→09:53)
[2022-12-11 06:19] LABS: RSV AMPLIFICATION NEGATIVE (NEGATIVE)
[2022-12-11 06:40] LABS: BASO # 0.1 10^3/uL (0.0-0.2); BASO % 0.4 % (0.0-1.0); EOS % 0.2 % (0.0-3.0); HEMATOCRIT 39.4 % (36.0-47.0); LYMPH # 1.9 10^3/uL (1.5-5.0); LYMPH % 14.1 % (24.0-44.0); MEAN CORPUSCULAR HEMOGLOBIN 22.2 pg (27.0-33.0); MEAN CORPUSCULAR HGB CONC 30.5 g/dl (32.0-36.5); MEAN CORPUSCULAR VOLUME 72.8 fl (80.0-96.0); MONO # 0.7 10^3/uL (0.0-0.8); MONO % 4.9 % (2.0-8.0); NEUTROPHILS # 10.7 10^3/uL (1.5-8.5); NEUTROPHILS % 79.9 % (36.0-66.0); PLATELET COUNT, AUTOMATED 505 10^3/uL (150-450); RED BLOOD COUNT 5.41 10^6/uL (4.00-5.40); WHITE BLOOD COUNT 13.3 10^3/uL (4.0-10.0)
[2022-12-11 07:02] LABS: ALKALINE PHOSPHATASE 103 U/L (46-116); ALT/SGPT 26 U/L (7.0-40); AST/SGOT 13 U/L (<34); BILIRUBIN,DIRECT 0.1 MG/DL (<0.4); BILIRUBIN,TOTAL 0.4 MG/DL (0.3-1.2); BLOOD UREA NITROGEN 20 MG/DL (9-23); CALCIUM LEVEL 9.5 MG/DL (8.5-10.1); CARBON DIOXIDE LEVEL 19 MMOL/L (20-31); CHLORIDE LEVEL 107 MMOL/L (98-107); CPK CREATINE PHOSPHOKINASE 85 U/L (34-145); CREATININE FOR GFR 1.06 MG/DL (0.55-1.30); ETHYL ALCOHOL (ETHANOL) < 0.003 % (0.000-0.010); GLOMERULAR FILTRATION RATE 57.1 (>51); GLUCOSE, FASTING 212 MG/DL (60-100); POTASSIUM SERUM 3.9 MMOL/L (3.5-5.1); SALICYLATE LEVEL < 3.0 MG/DL (<30); SODIUM LEVEL 141 MMOL/L (136-145); TOTAL PROTEIN 7.6 G/DL (5.7-8.2)
[2022-12-11 07:03] LABS: ACETAMINOPHEN LEVEL < 2.0 UG/ML (10.0-20.0)
[2022-12-11 07:05] LABS: THYROID STIMULATING HORMONE 2.516 uIU/ML (0.55-4.78)
[2022-12-11] MEDS ORDERED: LIDOCAINE 2% 5ML JELLY UROJET TOP ONE (07:05)
[2022-12-11 08:32] LABS: AMPHETAMINES LEVEL URINE NEGATIVE (NEGATIVE); BARBITURATES URINE NEGATIVE (NEGATIVE); BENZODIAZEPINES URINE NEGATIVE (NEGATIVE); COCAINE METABOLITE URINE NEGATIVE (NEGATIVE); METHADONE URINE NEGATIVE (NEGATIVE); OPIATES URINE NEGATIVE (NEGATIVE); PHENCYCLIDINE URINE NEGATIVE (NEGATIVE)
[2022-12-11 08:48] LABS: CANNABINOIDS URINE POSITIVE (NEGATIVE)
[2022-12-11 10:53] LABS: BLOOD UREA NITROGEN 17 MG/DL (9-23); CALCIUM LEVEL 8.6 MG/DL (8.5-10.1); CARBON DIOXIDE LEVEL 23 MMOL/L (20-31); CHLORIDE LEVEL 109 MMOL/L (98-107); CREATININE FOR GFR 0.88 MG/DL (0.55-1.30); GLOMERULAR FILTRATION RATE > 60.0 (>51); GLUCOSE, FASTING 145 MG/DL (60-100); POTASSIUM SERUM 3.7 MMOL/L (3.5-5.1); SODIUM LEVEL 142 MMOL/L (136-145)
[2022-12-11] MEDS ORDERED: MED REC IN PROGRESS XX SCH (13:10)
[2022-12-11] MEDS ORDERED: HOME MED LIST COMPLETE! XX SCH (13:25)
[2022-12-11] MEDS ORDERED: ALBUTEROL 90 MCG/ACT 8GM HFA INHALER INH PRN (13:45)
[2022-12-11] MEDS ORDERED: cloNIDine 0.1MG TABLET PO ONE (14:00)
[2022-12-11] MEDS ORDERED: METOPROLOL TART 25 MG TABLET PO ONE (14:15)
[2022-12-11 14:55] LABS: HEMOGLOBIN A1c 5.7 % (4.0-6.0)
[2022-12-11 15:10] LABS: C REACTIVE PROTEIN QUANTITATIV < 0.40 MG/DL (<1.0)
[2022-12-11 15:16] LABS: CHOLESTEROL LEVEL 200 MG/DL (<200); CHOLESTEROL RISK RATIO 4.58 (<5); HDL CHOLESTEROL 43.6 MG/DL (>40); LDL CHOLESTEROL 132.4 MG/DL (<100); NON-HDL-C 156.4 MG/DL; TRIGLYCERIDES LEVEL 120 MG/DL (<150)
[2022-12-11 15:19] VITALS: BP 120/75; TEMP 97.1; O2SAT 92
[2022-12-11 15:24] LABS: PROCALCITONIN <0.04 ng/ml
[2022-12-11] MEDS ORDERED: PANTOPRAZOLE 40MG TAB (PROTONIX) PO SCH (21:00)
[2022-12-12] MEDS ORDERED: METOPROLOL SUCC (TopROL XL) 100MG *XL* TAB PO SCH (09:00)
[2022-12-12] MEDS ORDERED: ATORVASTATIN 20 MG TAB PO SCH (09:00)
[2022-12-12] MEDS ORDERED: LOSARTAN 25 MG TAB PO SCH (09:00)
== END 2022-12-11 15:19 | disposition left against medical advice (07) | DRG 52 ==
LOC: EDBD 04:45 → M ED 04:45 → M ED INP 10:24
PROVIDERS: ADMIT General Practice; ATTEND General Practice
DX: G93.40 Encephalopathy, unspecified (principal); E66.2 Morbid (severe) obesity with alveolar hypoventilation; I10 Essential (primary) hypertension; G89.29 Other chronic pain; M54.9 Dorsalgia, unspecified; K21.9 Gastro-esophageal reflux disease without esophagitis; G47.00 Insomnia, unspecified; F12.90 Cannabis use, unspecified, uncomplicated; F17.200 Nicotine dependence, unspecified, uncomplicated; F41.9 Anxiety disorder, unspecified; I16.0 Hypertensive urgency; Z68.38 Body mass index [BMI] 38.0-38.9, adult; Z79.899 Other long term (current) drug therapy; Z88.6 Allergy status to analgesic agent; Z96.642 Presence of left artificial hip joint; Z91.198 Patient's noncompliance with other medical treatment and regimen for other reason

== ENCOUNTER → 2023-05-09 | Outpatient (REF) | LOC: M PLAIMG 13:53 | PROVIDERS: ATTEND Internal Medicine | DX: R52 Pain, unspecified (principal) ==

== ENCOUNTER → 2023-08-13 | Outpatient (REF) | payer OTHER | LOC: M LAB REF 11:20 | PROVIDERS: ATTEND Nurse Practitioner Family | DX: R05.9 Cough, unspecified (principal) ==

== ENCOUNTER → 2023-11-30 | Outpatient (REF) | payer OTHER ==
[2023-11-30 18:12] LABS: BASO % 0.5 % (0.0-1.0); EOS # 0.2 10^3/uL (0.0-0.5); EOS % 2.3 % (0.0-3.0); HEMATOCRIT 32.7 % (36.0-47.0); HEMOGLOBIN 9.5 g/dl (12.0-15.5); LYMPH # 2.2 10^3/uL (1.5-5.0); LYMPH % 26.3 % (24.0-44.0); MEAN CORPUSCULAR HEMOGLOBIN 21.3 pg (27.0-33.0); MEAN CORPUSCULAR HGB CONC 29.1 g/dl (32.0-36.5); MEAN CORPUSCULAR VOLUME 73.2 fl (80.0-96.0); MONO # 0.6 10^3/uL (0.0-0.8); MONO % 7.2 % (2.0-8.0); NEUTROPHILS # 5.2 10^3/uL (1.5-8.5); PLATELET COUNT, AUTOMATED 392 10^3/uL (150-450); RED BLOOD COUNT 4.47 10^6/uL (4.00-5.40); WHITE BLOOD COUNT 8.2 10^3/uL (4.0-10.0)
[2023-11-30 18:26] LABS: HEMOGLOBIN A1c 6.1 % (4.0-6.0)
[2023-11-30 18:50] LABS: ALBUMIN 3.3 G/DL (3.2-5.2); ALKALINE PHOSPHATASE 85 U/L (46-116); ALT/SGPT 19 U/L (7.0-40); AST/SGOT 15 U/L (<34); BILIRUBIN,TOTAL 0.2 MG/DL (0.3-1.2); BLOOD UREA NITROGEN 18 MG/DL (9-23); CALCIUM LEVEL 8.5 MG/DL (8.5-10.1); CARBON DIOXIDE LEVEL 28 MMOL/L (20-31); CHLORIDE LEVEL 107 MMOL/L (98-107); CHOLESTEROL LEVEL 157 MG/DL (<200); CHOLESTEROL RISK RATIO 3.71 (<5); GLOMERULAR FILTRATION RATE > 60.0 (>51); GLUCOSE, FASTING 89 MG/DL (60-100); HDL CHOLESTEROL 42.3 MG/DL (>40); LDL CHOLESTEROL 88.3 MG/DL (<100); MAGNESIUM LEVEL 2.3 MG/DL (1.8-2.4); NON-HDL-C 114.7 MG/DL; POTASSIUM SERUM 4.7 MMOL/L (3.5-5.1); SODIUM LEVEL 138 MMOL/L (136-145); TOTAL PROTEIN 6.6 G/DL (5.7-8.2); TRIGLYCERIDES LEVEL 132 MG/DL (<150)
[2023-11-30 18:51] LABS: THYROID STIMULATING HORMONE 3.833 uIU/ML (0.55-4.78); TOTAL 25(OH) VITAMIN D 23.5 NG/ML (20.0-100.0)
== END ==
LOC: M LAB REF 16:15
PROVIDERS: ATTEND Nurse Practitioner Family
DX: E66.01 Morbid (severe) obesity due to excess calories (principal); E55.9 Vitamin D deficiency, unspecified

== ENCOUNTER 2024-01-06 18:04 | Emergency (ER) | payer OTHER ==
[~2024-01-06] VITALS: Ht 162.6 cm; Wt 100.0 kg
[~2024-01-06 18:04] MED LIST changes: +GABA-1635; +GABA-1635 PO; -GABA800T4; -GABA800T4 PO
[2024-01-06 18:24] VITALS: BP 142/82; TEMP 98.8; O2SAT 93
[2024-01-06 18:36] LABS: BASO # 0.1 10^3/uL (0.0-0.2); BASO % 0.5 % (0.0-1.0); EOS # 0.1 10^3/uL (0.0-0.5); EOS % 1.1 % (0.0-3.0); HEMATOCRIT 37.7 % (36.0-47.0); HEMOGLOBIN 11.1 g/dl (12.0-15.5); LYMPH # 2.1 10^3/uL (1.5-5.0); MEAN CORPUSCULAR HEMOGLOBIN 21.1 pg (27.0-33.0); MEAN CORPUSCULAR HGB CONC 29.4 g/dl (32.0-36.5); MEAN CORPUSCULAR VOLUME 71.7 fl (80.0-96.0); MONO # 0.7 10^3/uL (0.0-0.8); MONO % 6.3 % (2.0-8.0); NEUTROPHILS # 8.5 10^3/uL (1.5-8.5); NEUTROPHILS % 73.7 % (36.0-66.0); PLATELET COUNT, AUTOMATED 478 10^3/uL (150-450); RED BLOOD COUNT 5.26 10^6/uL (4.00-5.40); WHITE BLOOD COUNT 11.5 10^3/uL (4.0-10.0)
[2024-01-06] MEDS ORDERED: ISOVUE-370 76% 100ML VIAL As Ordered ONE (18:39)
[2024-01-06 18:53] LABS: INR 1.09; PARTIAL THROMBOPLASTIN TIME 24.3 SECONDS (24.8-34.2); PROTHROMBIN TIME 13.8 SECONDS (12.5-14.5)
[2024-01-06 19:09] LABS: CPK CREATINE PHOSPHOKINASE 68 U/L (34-145)
[2024-01-06 19:10] LABS: ALBUMIN 3.9 G/DL (3.2-5.2); ALKALINE PHOSPHATASE 104 U/L (46-116); ALT/SGPT 32 U/L (7.0-40); AST/SGOT 20 U/L (<34); BILIRUBIN,DIRECT 0.2 MG/DL (<0.4); BILIRUBIN,TOTAL 0.5 MG/DL (0.3-1.2); BLOOD UREA NITROGEN 14 MG/DL (9-23); CALCIUM LEVEL 9.1 MG/DL (8.5-10.1); CARBON DIOXIDE LEVEL 24 MMOL/L (20-31); CHLORIDE LEVEL 109 MMOL/L (98-107); CK-MB VALUE MASS < 1.0 NG/ML (<3.6); CREATININE FOR GFR 0.74 MG/DL (0.55-1.30); GLOMERULAR FILTRATION RATE > 60.0 (>51); GLUCOSE, FASTING 130 MG/DL (60-100); MB/CK RELATIVE INDEX 1.47 (< OR =4); POTASSIUM SERUM 3.8 MMOL/L (3.5-5.1); SODIUM LEVEL 141 MMOL/L (136-145); TOTAL PROTEIN 7.5 G/DL (5.7-8.2)
[2024-01-06 19:11] LABS: FREE T4 1.07 NG/DL (0.89-1.76); THYROID STIMULATING HORMONE 4.126 uIU/ML (0.55-4.78)
[2024-01-06 22:15] VITALS: BP 132/72
[2024-01-06] MEDS: ONDANSETRON 4MG 2ML VIAL IV ONE (23:03)
[2024-01-06 23:15] VITALS: O2SAT 92
[2024-01-06] MEDS ORDERED: ONDA-282 PO (23:25)
[2024-01-06] MEDS: FOSFOMYCIN TROMETHAMINE 3 GM POWDER PACKET (MONUROL) PO ONE (23:51)
== END 2024-01-06 23:57 | disposition home or self-care (01) ==
LOC: M ED 18:04 → EDBD 18:04 → M ED 23:57
DX: N39.0 Urinary tract infection, site not specified (principal); I10 Essential (primary) hypertension; K21.9 Gastro-esophageal reflux disease without esophagitis; E78.5 Hyperlipidemia, unspecified; J45.909 Unspecified asthma, uncomplicated; F32.A Depression, unspecified; F51.01 Primary insomnia; F17.200 Nicotine dependence, unspecified, uncomplicated; Z88.6 Allergy status to analgesic agent; Z79.52 Long term (current) use of systemic steroids; Z79.02 Long term (current) use of antithrombotics/antiplatelets; Z79.83 Long term (current) use of bisphosphonates; Z79.899 Other long term (current) drug therapy
CPT/HCPCS: 70450; 70496; 70498; 70551; 71045; 80047; 80048; 80076; 81001; 82140; 82550; 82553; 84439; 84443; 84484; 85025; 85610; 85730; 87088; 87186; 87486; 87581; 87633; 87798; 93005; 93041; 94760; 96374; 99285; J2405; Q9967

== ENCOUNTER 2024-07-04 14:52 | Observation (INO) | payer OTHER ==
[~2024-07-04] VITALS: Ht 175.3 cm; Wt 105.7 kg
[~2024-07-04 14:52] MED LIST changes: +ONDA-282 PO
[2024-07-04 15:42] LABS: BASO # 0.1 10^3/uL (0.0-0.2); BASO % 0.6 % (0.0-1.0); EOS % 0.1 % (0.0-3.0); HEMATOCRIT 33.8 % (36.0-47.0); HEMOGLOBIN 10.1 g/dl (12.0-15.5); LYMPH # 1.5 10^3/uL (1.5-5.0); LYMPH % 16.4 % (24.0-44.0); MEAN CORPUSCULAR HEMOGLOBIN 20.6 pg (27.0-33.0); MEAN CORPUSCULAR HGB CONC 29.9 g/dl (32.0-36.5); MONO # 0.5 10^3/uL (0.0-0.8); MONO % 5.1 % (2.0-8.0); NEUTROPHILS # 6.9 10^3/uL (1.5-8.5); NEUTROPHILS % 77.3 % (36.0-66.0); PLATELET COUNT, AUTOMATED 409 10^3/uL (150-450); WHITE BLOOD COUNT 8.9 10^3/uL (4.0-10.0)
[2024-07-04 16:06] LABS: CK-MB VALUE MASS 1.7 NG/ML (<3.6)
[2024-07-04 16:09] LABS: ALBUMIN 3.7 G/DL (3.2-5.2); ALKALINE PHOSPHATASE 87 U/L (35-104); ALT/SGPT 23 U/L (7.0-40); AST/SGOT 14 U/L (<34); BILIRUBIN,DIRECT 0.2 MG/DL (<0.4); BILIRUBIN,TOTAL 0.5 MG/DL (0.3-1.2); BLOOD UREA NITROGEN 14 MG/DL (9-23); CALCIUM LEVEL 9.1 MG/DL (8.5-10.1); CARBON DIOXIDE LEVEL 26 MMOL/L (20-31); CHLORIDE LEVEL 108 MMOL/L (98-107); CPK CREATINE PHOSPHOKINASE 89 U/L (34-145); CREATININE FOR GFR 0.63 MG/DL (0.55-1.30); GLOMERULAR FILTRATION RATE > 60.0 (>51); GLUCOSE, FASTING 130 MG/DL (60-100); MB/CK RELATIVE INDEX 1.91 (< OR =4); POTASSIUM SERUM 3.7 MMOL/L (3.5-5.1); SODIUM LEVEL 147 MMOL/L (136-145); THYROID STIMULATING HORMONE 1.228 uIU/ML (0.55-4.78); TOTAL PROTEIN 7.3 G/DL (5.7-8.2)
[2024-07-04 16:27] LABS: AMPHETAMINES LEVEL URINE NEGATIVE (NEGATIVE); BARBITURATES URINE NEGATIVE (NEGATIVE); COCAINE METABOLITE URINE NEGATIVE (NEGATIVE)
[2024-07-04 16:28] LABS: BENZODIAZEPINES URINE NEGATIVE (NEGATIVE); METHADONE URINE NEGATIVE (NEGATIVE); OPIATES URINE NEGATIVE (NEGATIVE); PHENCYCLIDINE URINE NEGATIVE (NEGATIVE)
[2024-07-04 16:33] LABS: CANNABINOIDS URINE POSITIVE (NEGATIVE)
[2024-07-04 17:13] LABS: OSMOLALITY SERUM 306 MOSM/KG (275-295)
[2024-07-04] MEDS ORDERED: ALBU8.5H INH (17:18)
[2024-07-04] MEDS ORDERED: HOME MED LIST COMPLETE! XX SCH (17:20)
[2024-07-04 17:24] LABS: ETHYL ALCOHOL (ETHANOL) < 0.003 % (0.000-0.010)
[2024-07-04 17:29] LABS: KETONE, URINE AUTO RFX NEGATIVE (NEGATIVE); LEUKOCYTE ESTERASE UR AUTO RFX NEGATIVE (NEGATIVE); MUCUS, URINE RFX SMALL (NEGATIVE); RBC, URINE AUTO RFX 1 /HPF (0-3); SQUAM EPITHELIAL CELL UR AURFX 0 /HPF (0-6); WBC, URINE AUTO RFX 2 /HPF (0-3)
[2024-07-04 17:39] LABS: NITRITE, URINE AUTO RFX POSITIVE (NEGATIVE)
[2024-07-04] MEDS ORDERED: ALBUTEROL 90 MCG/ACT 8GM HFA INHALER INH PRN (18:30)
[2024-07-04] MEDS: hydrALAZINE 20MG/ML 1ML VIAL IV ONE (18:40)
[2024-07-04 19:32] LABS: VENOUS BASE EXCESS -0.1 (-2.0-2.0); VENOUS HCO3 22.5 MMOL/L (23.0-27.0); VENOUS O2 SATURATION 94.2 % (60.0-80.0); VENOUS PARTIAL PRESSURE CO2 30.4 mmHg (38.0-50.0); VENOUS PARTIAL PRESSURE O2 70.9 mmHg (30.0-50.0); VENOUS PH 7.488 UNITS (7.330-7.430); VENOUS STANDARD HCO3 24.3 MMOL/L; VENOUS TOTAL CO2 23.5 MMOL/L (24.0-28.0)
[2024-07-04 19:48] LABS: INR 0.95; PARTIAL THROMBOPLASTIN TIME 23.8 SECONDS (24.8-34.2)
[2024-07-04 20:03] LABS: HEMOGLOBIN A1c 5.7 % (4.0-6.0)
[2024-07-04 20:10] LABS: CK-MB VALUE MASS 1.1 NG/ML (<3.6)
[2024-07-04 20:11] LABS: CHOLESTEROL RISK RATIO 3.45 (<5); HDL CHOLESTEROL 47.4 MG/DL (>40); LDL CHOLESTEROL 97.2 MG/DL (<100); MB/CK RELATIVE INDEX 1.15 (< OR =4); NON-HDL-C 116.6 MG/DL
[2024-07-04] MEDS: PANTOPRAZOLE 40MG TAB (PROTONIX) PO SCH (22:44)
[2024-07-04] MEDS: CEFDINIR 300 MG CAP (OMNICEF) PO SCH (22:44)
[2024-07-04] MEDS: NICOTINE 14 MG/24 HR TRANSDERMAL TD SCH (22:45)
[2024-07-04] MEDS: cloNIDine 0.2 MG TAB PO ONE (22:45)
[2024-07-05] VITALS: BP 183/107; TEMP 99; O2SAT 95
[2024-07-05] MEDS: **hydrALAZINE HCL** 25 MG TAB PO SCH (00:10)
[2024-07-05] MEDS: ACETAMINOPHEN 325 MG TAB PO PRN (02:20)
[2024-07-05 04:20] VITALS: BP 185/104; TEMP 98.1; O2SAT 92
[2024-07-05] MEDS: LOSARTAN 25 MG TAB PO SCH (06:54)
[2024-07-05] MEDS: METOPROLOL SUCC (TopROL XL) 100MG *XL* TAB PO SCH (06:54)
[2024-07-05 08:00] VITALS: BP 172/98; TEMP 98; O2SAT 95
[2024-07-05] MEDS: ENOXAPARIN 40MG/0.4ML SYRINGE (J1650 PER 10MG) SC SCH (08:17)
[2024-07-05] MEDS: ATORVASTATIN 20 MG TAB PO SCH (08:18)
[2024-07-05 09:18] LABS: HEMATOCRIT 33.3 % (36.0-47.0); HEMOGLOBIN 10.2 g/dl (12.0-15.5); MEAN CORPUSCULAR HEMOGLOBIN 20.5 pg (27.0-33.0); MEAN CORPUSCULAR HGB CONC 30.6 g/dl (32.0-36.5); PLATELET COUNT, AUTOMATED 448 10^3/uL (150-450); RED BLOOD COUNT 4.97 10^6/uL (4.00-5.40); WHITE BLOOD COUNT 10.3 10^3/uL (4.0-10.0)
[2024-07-05] MEDS: DULoxetine 30MG CAPSULE (CYMBALTA) PO SCH (09:42)
[2024-07-05] MEDS: GABAPENTIN 400MG CAP PO SCH (09:42)
[2024-07-05] MEDS: SERTRALINE 100 MG TAB PO SCH (09:42)
[2024-07-05] MEDS: traMADol 50 MG TAB PO SCH (09:43)
[2024-07-05 09:46] LABS: ALBUMIN 3.7 G/DL (3.2-5.2); ALKALINE PHOSPHATASE 86 U/L (35-104); ALT/SGPT 23 U/L (7.0-40); AST/SGOT 14 U/L (<34); BILIRUBIN,TOTAL 0.9 MG/DL (0.3-1.2); BLOOD UREA NITROGEN 11 MG/DL (9-23); CALCIUM LEVEL 9.8 MG/DL (8.5-10.1); CARBON DIOXIDE LEVEL 27 MMOL/L (20-31); CHLORIDE LEVEL 103 MMOL/L (98-107); CREATININE FOR GFR 0.59 MG/DL (0.55-1.30); GLOMERULAR FILTRATION RATE > 60.0 (>51); GLUCOSE, FASTING 110 MG/DL (60-100); POTASSIUM SERUM 2.8 MMOL/L (3.5-5.1); SODIUM LEVEL 141 MMOL/L (136-145); TOTAL PROTEIN 7.2 G/DL (5.7-8.2)
[2024-07-05] MEDS: cefTRIAXone SOD 1 GM in DEXTROSE 5% (D5W) ADV/MINI-BAG 50 ML IV SCH (11:16)
[2024-07-05] MEDS: POTASSIUM CHLORIDE 10MEQ SR TABLET PO SCH ×2 (11:17→18:19)
[2024-07-05 11:18] VITALS: BP 129/75
[2024-07-05 12:00] VITALS: BP 129/75; TEMP 98.4; O2SAT 97
[2024-07-05 16:28] LABS: BLOOD UREA NITROGEN 15 MG/DL (9-23); CALCIUM LEVEL 9.7 MG/DL (8.5-10.1); CARBON DIOXIDE LEVEL 27 MMOL/L (20-31); CHLORIDE LEVEL 105 MMOL/L (98-107); CREATININE FOR GFR 0.82 MG/DL (0.55-1.30); GLOMERULAR FILTRATION RATE > 60.0 (>51); GLUCOSE, FASTING 97 MG/DL (60-100); SODIUM LEVEL 140 MMOL/L (136-145)
[2024-07-05 20:29] VITALS: BP 119/62; TEMP 98.1; O2SAT 97
[2024-07-05] MEDS: SODIUM CHLORIDE NASAL 0.65% SPRAY BTL (OCEAN) PRN (21:38)
[2024-07-06 04:17] VITALS: BP_SYST 121; BP_SYST 138; BP_DIAS 73; BP_DIAS 78; TEMP 97.9; O2SAT 95; O2SAT 97
[2024-07-06] MEDS ORDERED: CEFD300CAP PO (07:35)
[2024-07-06 09:38] VITALS: BP 145/86
[2024-07-06 09:43] LABS: BLOOD UREA NITROGEN 19 MG/DL (9-23); CARBON DIOXIDE LEVEL 26 MMOL/L (20-31); CHLORIDE LEVEL 108 MMOL/L (98-107); CREATININE FOR GFR 0.86 MG/DL (0.55-1.30); GLOMERULAR FILTRATION RATE > 60.0 (>51); GLUCOSE, FASTING 104 MG/DL (60-100); POTASSIUM SERUM 4.1 MMOL/L (3.5-5.1); SODIUM LEVEL 143 MMOL/L (136-145)
== END 2024-07-06 10:57 | disposition home or self-care (01) ==
LOC: M ED 14:52 → M ED INP 14:53 → M MSPAV 23:54
PROVIDERS: ADMIT Internal Medicine; ATTEND Internal Medicine
DX: G93.41 Metabolic encephalopathy (principal); N39.0 Urinary tract infection, site not specified; B96.20 Unspecified Escherichia coli [E. coli] as the cause of diseases classified elsewhere; R94.31 Abnormal electrocardiogram [ECG] [EKG]; I10 Essential (primary) hypertension; E78.5 Hyperlipidemia, unspecified; F41.9 Anxiety disorder, unspecified; M54.9 Dorsalgia, unspecified; G89.29 Other chronic pain; E66.01 Morbid (severe) obesity due to excess calories; G47.00 Insomnia, unspecified; F12.90 Cannabis use, unspecified, uncomplicated; R68.2 Dry mouth, unspecified; F69 Unspecified disorder of adult personality and behavior; R41.82 Altered mental status, unspecified; T42.4X5D Adverse effect of benzodiazepines, subsequent encounter; G92.8 Other toxic encephalopathy; Z96.642 Presence of left artificial hip joint; Z98.890 Other specified postprocedural states; F17.200 Nicotine dependence, unspecified, uncomplicated; Z88.8 Allergy status to other drugs, medicaments and biological substances; Z79.899 Other long term (current) drug therapy
CPT/HCPCS: 36415; 70450; 70551; 71045; 80048; 80053; 80061; 80076; 80307; 81001; 82077; 82140; 82550; 82553; 82803; 83036; 83930; 84145; 84443; 84484; 85025; 85027; 85610; 85730; 87088; 87186; 93005; 93041; 94760; 96365; 96366; 96372; 96375; 97161; 99285; J0360; J0696; J1650

== ENCOUNTER → 2024-07-14 | Outpatient (REF) | payer OTHER ==
[~2024-07-14] MED LIST changes: +ALBU8.5H INH; +CEFD300CAP PO
[2024-07-14 17:44] LABS: BLOOD UREA NITROGEN 24 MG/DL (9-23); CARBON DIOXIDE LEVEL 26 MMOL/L (20-31); CHLORIDE LEVEL 105 MMOL/L (98-107); CREATININE FOR GFR 0.73 MG/DL (0.55-1.30); GLOMERULAR FILTRATION RATE > 60.0 (>51); GLUCOSE, FASTING 103 MG/DL (60-100); MAGNESIUM LEVEL 2.2 MG/DL (1.8-2.4); POTASSIUM SERUM 4.5 MMOL/L (3.5-5.1); SODIUM LEVEL 139 MMOL/L (136-145)
== END ==
LOC: M LAB REF 17:03
PROVIDERS: ATTEND Nurse Practitioner Family
DX: E87.6 Hypokalemia (principal)

== ENCOUNTER → 2025-02-06 | Outpatient (REF) | payer OTHER ==
[2025-02-06 12:53] LABS: BASO # 0.0 10^3/uL (0.0-0.2); BASO % 0.3 % (0.0-1.0); EOS # 0.3 10^3/uL (0.0-0.5); EOS % 2.2 % (0.0-3.0); LYMPH # 1.8 10^3/uL (1.5-5.0); LYMPH % 14.9 % (24.0-44.0); MONO # 0.9 10^3/uL (0.0-0.8); MONO % 7.1 % (2.0-8.0); NEUTROPHILS # 9.2 10^3/uL (1.5-8.5); NEUTROPHILS % 75.1 % (36.0-66.0); PLATELET COUNT, AUTOMATED 370 10^3/uL (150-450)
[2025-02-06 12:59] LABS: ALT/SGPT 20 U/L (7.0-40); AST/SGOT 14 U/L (<34); CALCIUM LEVEL 8.5 MG/DL (8.5-10.1); CARBON DIOXIDE LEVEL 26 MMOL/L (20-31); CHLORIDE LEVEL 105 MMOL/L (98-107); CREATININE FOR GFR 0.68 MG/DL (0.55-1.30); GLOMERULAR FILTRATION RATE > 90.0 (>51); POTASSIUM SERUM 3.8 MMOL/L (3.5-5.1); SODIUM LEVEL 141 MMOL/L (136-145)
== END ==
LOC: M LAB REF 12:09
PROVIDERS: ATTEND Student in an Organized Health Care Education/Training Program
DX: E87.6 Hypokalemia (principal); D64.9 Anemia, unspecified

== ENCOUNTER → 2025-02-11 | Outpatient (REF) | payer OTHER ==
[2025-02-11 14:14] LABS: BASO # 0.1 10^3/uL (0.0-0.2); BASO % 0.6 % (0.0-1.0); EOS # 0.3 10^3/uL (0.0-0.5); EOS % 3.5 % (0.0-3.0); LYMPH # 2.6 10^3/uL (1.5-5.0); LYMPH % 31.1 % (24.0-44.0); MONO # 0.6 10^3/uL (0.0-0.8); MONO % 7.6 % (2.0-8.0); NEUTROPHILS # 4.8 10^3/uL (1.5-8.5); NEUTROPHILS % 56.7 % (36.0-66.0); PLATELET COUNT, AUTOMATED 472 10^3/uL (150-450)
[2025-02-11 14:18] LABS: CHOLESTEROL LEVEL 200.0 MG/DL (<200); CHOLESTEROL RISK RATIO 5.39 (<5); IRON (FE) 29.0 UG/DL (50-170); LDL CHOLESTEROL 131.9 MG/DL (<100); NON-HDL-C 162.9 MG/DL; TRIGLYCERIDES LEVEL 155.0 MG/DL (<150); VITAMIN B12 LEVEL 409.0 PG/ML (211-911)
== END ==
LOC: M LAB REF 12:31
PROVIDERS: ATTEND Student in an Organized Health Care Education/Training Program
DX: D64.9 Anemia, unspecified (principal); Z68.39 Body mass index [BMI] 39.0-39.9, adult